=== PATIENT | female | born 1980 | race Caucasian/White ===

== ENCOUNTER 2020-06-10 15:36 | Emergency (ER) | payer MEDICAID, SELFPAY ==
[2020-06-10 15:51] VITALS: BP 178/123; PULSE 99; RESP 18; TEMP 36; O2SAT 97; BMI 34.4
--- NOTE | 2020-06-10 16:07 | XR_ITS ---
WS: [id number] XR ankle LT min 3V* [id number] REASON FOR EXAM: injury with pain FINDINGS: The ankle mortise is intact. No fracture or other focal osseous abnormality. No soft tissue abnormality. XR/XR ankle LT min 3V* [id number] IMPRESSION: No significant abnormality.
--- NOTE | 2020-06-10 16:08 | W.ED.EXTPRO ---
HPI - Extremity Problem General: Chief complaint: Extremity Problem,Nontraumatic Stated complaint: LEFT ANKLE PAIN Time Seen by Provider: 06/10/20 16:07 History of Present Illness: HPI Narrative: Patient is a 39-year-old female comes to the ED with left ankle pain. Patient says she was in her car earlier today and reposition herself and when she moved her left foot she felt a pop in her ankle. Any weightbearing now is painful. She rates her pain a 4 out of 10. Associated symptoms: Deny chest pain, fever(s) or rash Review of Systems Const: Denies: fever(s), chills or fatigue Eyes: Denies: change in vision or eye discomfort ENMT: Denies: throat pain, odynophagia, nasal discharge or nasal congestion Card: Denies: chest pain, palpitations, edema, swelling of feet/ankles, dyspnea on exertion or orthopnea Resp: Denies: dyspnea, productive cough or non-productive cough GI: Denies: abdominal pain, nausea, vomiting, diarrhea, constipation or hematochezia : Denies: flank pain, dysuria or hematuria Musc: Reports: extremity pain (left ankle); Denies: neck pain, back pain or extremity swelling Skin/Breast: Denies: rash or new lesions Neuro: Denies: headache(s), numbness in extremities or weakness in extremities Physical Exam Const: COMMON NORMALS: no acute distress, patient oriented x3 and alert GENERAL APPEARANCE: cooperative and comfortable HENMT: COMMON NORMALS: normocephalic HEAD & SCALP: normocephalic MOUTH: Normal oral and palatal mucosa present THROAT: posterior oropharynx normal and uvula midline Eye: COMMON NORMALS: Equal, round and reactive pupils present PUPIL: Yes Equal, round and reactive pupils present Neck/C-Spine: COMMON NORMALS: supple GENERAL: Yes normal visual inspection Resp: COMMON NORMALS: normal respiratory effort, No retractions, No use of accessory muscles and clear to auscultation bilaterally AUSCULTATION: clear to auscultation bilaterally Cardio: COMMON NORMALS: regular rate, regular rhythm, S1 normal heart sound present, S2 normal heart sound present, No gallops present (Cardio), No clicks present (Cardio), No murmurs present (Cardio) and Peripheral pulses 2+ throughout RATE: regular rate RHYTHM: regular rhythm HEART SOUNDS: S1 normal heart sound present and S2 normal heart sound present PERIPHERAL PULSES: Peripheral pulses 2+ throughout GI: COMMON NORMALS: Normal to inspection, nondistended, normoactive bowel sounds present, Soft to palpation, non-tender and no masses PALPATION: Yes Soft to palpation : COMMON NORMALS: Yes no CVA tenderness BLADDER/KIDNEY EXAM: Yes no CVA tenderness Back/Pelvis: COMMON NORMALS: no CVA tenderness Extremity: NARRATIVE EXTREMITY EXAM: Left ankle?no visible deformity or edema seen. Some ecchymosis over the medial aspect of the ankle. Tenderness to palpation over lateral and medial aspect of ankle. Decreased range of motion due to pain. Neurovascular intact with 2+ pedal pulse. GENERAL: Yes normal exam except as noted Neuro: COMMON NORMALS: patient oriented x3 and moves all extremities SENSORIUM/ORIENTATION: Yes alert Skin: GENERAL SKIN EXAM: dry skin Course Vital Signs: Vital signs: Vital Signs Temperature 96.8 F L 06/10/20 15:51 Pulse Rate 90 06/10/20 17:05 Respiratory Rate 17 06/10/20 17:05 Blood Pressure 149/96 06/10/20 17:05 Pulse Oximetry 98 06/10/20 17:05 MDM - Extremity (Nontraumatic) MDM Narrative: Medical decision making narrative: Patient is a 39-year-old female comes to the ED with left ankle pain. Exam shows no visible deformity or edema. Neurovascular intact and patient has some tenderness to palpation over the medial and lateral aspect of ankle. X-ray of left ankle shows no acute findings or fractures. Patient was discharged and given some crutches to help ambulate for couple days. She was told to rest ice and elevate and take [id number] ibuprofen or Tylenol for pain. Return to ED precautions given. Patient will follow up with PCP in 7 to 10 days. Patient understood agree with plan. Imaging Data^: Xray Ortho: Attestation: I personally reviewed and interpreted this imaging study as follows: My impression: no acute fracture on Left ankle xray Radiologist's impression: [address] [place] [address] XRay Report Signed Patient: CAROLYNE CODY Unit #: [id number] : 1980 Age/Sex: 39 / F ADM Date: 06/10/20 Loc: ER Room/Bed: Attending Dr: Ordering Provider/Ordering MD: Ike Dorman Date of Service: 06/10/20 Procedure(s): XR ankle LT min 3V* [id number] Accession Number(s): [id number] Report Number: [id number] WS: [id number] XR ankle LT min 3V* [id number] REASON FOR EXAM: injury with pain FINDINGS: The ankle mortise is intact. No fracture or other focal osseous abnormality. No soft tissue abnormality. XR/XR ankle LT min 3V* [id number] IMPRESSION: No significant abnormality. Dictated By: Esau Vee Jr, MD Signed By: Esau Vee Jr, MD Signed Date/Time: 06/10/201638 DD/ 35 Discharge Plan Discharge Patient Disposition: Home Clinical Impression: Ankle sprain Qualifiers: Encounter type: initial encounter Involved ligament of ankle: anterior talofibular ligament Laterality: left Qualified Code(s): S93.492A - Sprain of other ligament of left ankle, initial encounter Condition: Stable Prescriptions: No Action omeprazole 20 mg Capsule,Delayed Release(Dr/Ec) 20 mg PO DAILY@04 RF: 0 Xarelto 20 mg Tablet 20 mg PO DAILY@17 RF: 0 Discharge Orders: Discharge ED (Routine); Ordered 06/10/20 Ordered By: Ike Dorman Discharge Diet: Regular Discharge Activity: Use walker/crutches as instructed Patient Instructions: Ankle Sprain (ED), Ankle Exercises (GEN) Activity Restrictions/Additional Instructions: Follow-up with medical provider as directed. Take [id number] pain meds to help with pain. Rest, ice and elevate left foot. Use crutches for the next couple days to help ambulate and allow for healing. Return to the ER or your medical provider if condition worsens. Please read and understand discharge instructions. If any questions, please ask. 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
[2020-06-10] MEDS: HYDROcodone-acetaminophen 7.5-325 mg Tablet 1 TAB PO (17:01)
[2020-06-10 17:05] VITALS: BP 149/96; PULSE 90; RESP 17; O2SAT 98
== END 2020-06-10 17:06 | disposition home or self-care (01) ==
PROVIDERS: Emergency Provider Physician Assistant
DX: S93.492A Sprain of other ligament of left ankle, initial encounter (principal); X58.XXXA Exposure to other specified factors, initial encounter
CPT/HCPCS: 12345; 73610; 99281; 99283; E0114

== ENCOUNTER → 2020-08-13 14:03 | Outpatient (BNVA) | payer MEDICAID, SELFPAY | PROVIDERS: Visit Provider Nurse Practitioner Family | DX: D68.8 Other specified coagulation defects (principal); I10 Essential (primary) hypertension; M51.36 Other intervertebral disc degeneration, lumbar region; F32.9 Major depressive disorder, single episode, unspecified; Z86.79 Personal history of other diseases of the circulatory system; Z86.59 Personal history of other mental and behavioral disorders | CPT/HCPCS: 36415; 80053; 80061; 83735; 84439; 84443; 85025 ==

== ENCOUNTER → 2020-09-10 11:00 | Outpatient (BNVA) | payer MEDICAID, SELFPAY | PROVIDERS: Visit Provider Nurse Practitioner Family | DX: F41.9 Anxiety disorder, unspecified (principal); F32.9 Major depressive disorder, single episode, unspecified | CPT/HCPCS: 80307 ==

== ENCOUNTER → 2020-10-13 08:38 | Outpatient (BNVA) | payer MEDICAID, SELFPAY | PROVIDERS: Visit Provider Psychiatry & Neurology Psychiatry | DX: F43.12 Post-traumatic stress disorder, chronic (principal); F33.2 Major depressive disorder, recurrent severe without psychotic features; F41.1 Generalized anxiety disorder; F17.200 Nicotine dependence, unspecified, uncomplicated; F15.21 Other stimulant dependence, in remission; F11.20 Opioid dependence, uncomplicated; F12.20 Cannabis dependence, uncomplicated | CPT/HCPCS: 99204 ==

== ENCOUNTER → 2020-10-15 09:13 | Outpatient (BNVA) | payer MEDICAID, SELFPAY | PROVIDERS: Visit Provider Psychiatry & Neurology Psychiatry | DX: F41.1 Generalized anxiety disorder (principal); F11.20 Opioid dependence, uncomplicated; F12.20 Cannabis dependence, uncomplicated; F15.21 Other stimulant dependence, in remission; F17.200 Nicotine dependence, unspecified, uncomplicated; F33.2 Major depressive disorder, recurrent severe without psychotic features; F43.12 Post-traumatic stress disorder, chronic | CPT/HCPCS: 80307; 99214 ==

== ENCOUNTER → 2020-10-27 11:00 | Outpatient (BNVA) | payer MEDICAID, SELFPAY | PROVIDERS: PCP Nurse Practitioner Family; Visit Provider Psychiatry & Neurology Psychiatry | DX: F41.1 Generalized anxiety disorder (principal); F33.2 Major depressive disorder, recurrent severe without psychotic features; F43.12 Post-traumatic stress disorder, chronic; F17.200 Nicotine dependence, unspecified, uncomplicated; F11.20 Opioid dependence, uncomplicated; F12.20 Cannabis dependence, uncomplicated; F15.21 Other stimulant dependence, in remission | CPT/HCPCS: 80307; 99214 ==

== ENCOUNTER → 2020-11-11 08:54 | Outpatient (BNVA) | payer MEDICAID, SELFPAY | PROVIDERS: PCP Nurse Practitioner Family; Visit Provider Psychiatry & Neurology Psychiatry | DX: F32.9 Major depressive disorder, single episode, unspecified (principal); F41.1 Generalized anxiety disorder; F43.12 Post-traumatic stress disorder, chronic; F33.2 Major depressive disorder, recurrent severe without psychotic features; F17.200 Nicotine dependence, unspecified, uncomplicated; F11.20 Opioid dependence, uncomplicated; F12.20 Cannabis dependence, uncomplicated; F15.21 Other stimulant dependence, in remission | CPT/HCPCS: 80307; 99214 ==

== ENCOUNTER → 2020-12-02 11:55 | Outpatient (BNVA) | payer MEDICAID, SELFPAY | PROVIDERS: PCP Nurse Practitioner Family; Visit Provider Psychiatry & Neurology Psychiatry | DX: F32.9 Major depressive disorder, single episode, unspecified (principal); F60.3 Borderline personality disorder; F11.20 Opioid dependence, uncomplicated; F12.20 Cannabis dependence, uncomplicated; F15.21 Other stimulant dependence, in remission; F17.200 Nicotine dependence, unspecified, uncomplicated; F41.1 Generalized anxiety disorder; F33.2 Major depressive disorder, recurrent severe without psychotic features; F43.12 Post-traumatic stress disorder, chronic | CPT/HCPCS: 80307; 99214 ==

== ENCOUNTER → 2021-02-03 10:18 | Outpatient (BNVA) | payer MEDICAID, SELFPAY | PROVIDERS: PCP Nurse Practitioner Family; Visit Provider Psychiatry & Neurology Psychiatry | DX: F60.3 Borderline personality disorder (principal); F41.1 Generalized anxiety disorder; F33.2 Major depressive disorder, recurrent severe without psychotic features; F43.12 Post-traumatic stress disorder, chronic; F12.20 Cannabis dependence, uncomplicated; F17.200 Nicotine dependence, unspecified, uncomplicated; F11.20 Opioid dependence, uncomplicated; F15.21 Other stimulant dependence, in remission | CPT/HCPCS: 99214 ==

== ENCOUNTER → 2021-02-10 14:07 | Outpatient (BNVA) | payer MEDICAID, SELFPAY | PROVIDERS: PCP Nurse Practitioner Family; Visit Provider Psychiatry & Neurology Psychiatry | DX: F11.20 Opioid dependence, uncomplicated (principal); F15.21 Other stimulant dependence, in remission | CPT/HCPCS: 80307 ==

== ENCOUNTER → 2021-03-17 10:58 | Outpatient (BNVA) | payer MEDICAID, SELFPAY | PROVIDERS: PCP Nurse Practitioner Family; Visit Provider Nurse Practitioner Family | DX: G89.29 Other chronic pain (principal); M25.561 Pain in right knee; M25.761 Osteophyte, right knee | CPT/HCPCS: 73562 ==

== ENCOUNTER → 2021-03-24 09:43 | Outpatient (BNVA) | payer MEDICAID, SELFPAY | PROVIDERS: PCP Nurse Practitioner Family; Visit Provider Psychiatry & Neurology Psychiatry | DX: F60.3 Borderline personality disorder (principal); F41.1 Generalized anxiety disorder; F33.2 Major depressive disorder, recurrent severe without psychotic features; F43.12 Post-traumatic stress disorder, chronic | CPT/HCPCS: 80307; 99214 ==

== ENCOUNTER 2021-03-25 11:34 | Inpatient (IN) | payer MEDICAID, SELFPAY ==
[2021-03-25 11:36] VITALS: BP 174/151; PULSE 70; RESP 15; TEMP 36.6; O2SAT 99; BMI 36.7
--- NOTE | 2021-03-25 11:37 | ED_ITS ---
HPI - Psych General: Chief Complaint: Psychiatric Symptoms Stated Complaint: PSYCH EVAL Time Seen by Provider: 03/25/21 11:37 History of Present Illness: HPI Narrative: Ms. Herring is a 40-year-old lady with complex past psychiatric history, substance abuse history, and blood clotting disorder who presents emergency department due to suicidal ideation. She reports worsening of symptoms for the past 3 to 4 months without specific trigger. She endorses increased thoughts of suicide and had a suicide attempt for which she was hospitalized at [facility] approximately 2 weeks ago. At that time she overdosed on trazodone. She was discharged with medication changes however continues to feel suicidal. She endorses associated generalized malaise, sleep disturbance, appetite changes. Overall the course of symptoms has persisted. The intensity is moderate to severe. No other specific exacerbating or alleviating factors. She denies medical complaints. She has not missed any doses of her rivaroxaban. Review of Systems General: Reports: 10 or more systems reviewed and unremarkable except in HPI and below PFSH ED PFSH: Medical History History of bipolar disorder Social History Smoking and tobacco status: current every day smoker cigarettes Years cigarettes smoked: 20 Quit status (tobacco): has tried quititng Number of times tried to quit tobacco: 2 Second hand smoke exposure: Yes Alcohol intake: current Alcohol intake frequency: few times a month Physical Exam Narrative: EXAM NARRATIVE: GENERAL/CONSTITUTIONAL - well-appearing. No acute distress. Obese. Eyes - PERRL, no conjunctival injection ENMT - Atraumatic external nose and ears. Moist mucous membranes NECK - supple. trachea midline CARDIOVASCULAR - regular rate and rhythm. Peripheral pulses 2+ and equal RESPIRATORY - clear to auscultation bilaterally. No retractions or accessory muscle use. ABDOMEN/GI - Nontender, Nondistended. MSK - Extremities without obvious deformity or tenderness to palpation SKIN - Warm, Dry NEURO - alert and appropriately oriented. Moves all extremities equally. PSYCH - depressed affect. Course ED course: - Patient was seen and evaluated by me at bedside - Vital signs obtained - Initial evaluation notable for no acute distress, nontoxic appearance. - Labs notable for no significant abnormality - Based on ED evaluation at this point there is no obvious condition that would preclude the patient from inpatient management of her psychiatric concerns. - Dr. Mohr of the psychiatry service was contacted and agreed to admit the patient. - Patient was admitted without further deterioration or significant events. Vital Signs: Vital signs: Vital Signs Temperature 98.3 F 03/26/21 06:00 Pulse Rate 92 03/26/21 06:00 Respiratory Rate 20 H 03/26/21 06:00 Blood Pressure 115/76 03/26/21 06:00 Pulse Oximetry 97 03/26/21 06:00 MDM - Psych Medical Records: Attestation: I reviewed the patient's medical records. Lab Data: Attestation: I reviewed the patient's lab results. Labs: Lab Results 03/25/21 03/25/21 03/25/21 12:47 12:47 12:47 WBC RBC Hgb Hct MCV MCH MCHC RDW Plt Count MPV Neut % (Auto) Lymph % (Auto) [place] % (Auto) Eos % (Auto) Baso % (Auto) Neut # (Auto) Lymph # (Auto) [place] # (Auto) Eos # (Auto) Baso # (Auto) Nucleated RBC % (a uto) Nucleated RBCs # Sodium Potassium Chloride Carbon Dioxide Anion Gap BUN Creatinine GFR Calculation Glucose Calculated Osmolal ity Calcium Total Bilirubin AST ALT Alkaline Phosphata se Total Protein Albumin Globulin TSH HCG, Qual Negative (Negative) Urine Color Yellow (Yellow) Urine Appearance Clear (CLEAR) Urine pH 8 H (5-7) Ur Specific Gravit y 1.010 (1.005-1.030) Urine Protein Neg (Negative) Urine Glucose (UA) Norm (Normal) Urine Ketones Negative (Negative) Urine Blood Neg (Negative) Urine Nitrate Negative (Negative) Urine Bilirubin Neg (Negative) Prot Sulfosalicyli c Acd Negative (Negative) Urine Urobilinogen Norm mg/dL mg/dL (Negative) Ur Leukocyte Angy ase Negative (Negative) Salicylates Urine Opiates Scre en Negative ng/mL ng /mL (Negative) Acetaminophen Ur Barbiturates Sc reen Negative ng/mL ng /mL (Negative) Ur Phencyclidine S crn Negative ng/mL ng /mL (Negative) Ur Amphetamines Sc reen Negative ng/mL ng /mL (Negative) U Benzodiazepines Scrn Negative ng/mL ng /mL (Negative) Urine Cocaine Scre en Negative ng/mL ng /mL (Negative) U Marijuana (THC) Screen Positive ng/mL H ng/mL (Negative) 03/25/21 03/25/21 13:09 13:09 WBC 5.5 10^3/uL 10^3/ uL (4.0-10.0) RBC 4.69 10^6/uL 10^6 /uL (4.1-5.3) Hgb 13.4 g/dL g/dL (11.5-15.3) Hct 41.5 % % (37.0-47.0) MCV 88.5 fl fl (81-99) MCH 28.6 pg pg (28.0-34.0) MCHC 32.3 g/dL g/dL (30.0-36.0) RDW 12.3 % % (12.1-15.1) Plt Count 173 10^3/cmm 10^3 /cmm (130-400) MPV 11.1 fL H fL (7.4-10.4) Neut % (Auto) 51.1 % % Lymph % (Auto) 35.9 % % [place] % (Auto) 6.3 % % Eos % (Auto) 4.9 % % Baso % (Auto) 1.6 % % Neut # (Auto) 2.82 10^3/uL 10^3 /uL (1.8-7.7) Lymph # (Auto) 2.0 10^3/uL 10^3/ uL (0.8-4.8) [place] # (Auto) 0.4 10^3/uL 10^3/ uL (0.2-0.9) Eos # (Auto) 0.3 10^3/uL 10^3/ uL (0.0-0.8) Baso # (Auto) 0.1 10^3/uL 10^3/ uL (0.0-0.1) Nucleated RBC % (a uto) 0 % % Nucleated RBCs # 0.0 /100WBC /100W BC Sodium 136 mmol/L mmol/L (136-145) Potassium 4.8 mmol/L mmol/L (3.5-5.1) Chloride 102 mmol/L mmol/L (98-107) Carbon Dioxide 24 mmol/L mmol/L (22-29) Anion Gap 14.8 (5-19) BUN 12 mg/dL mg/dL (6-20) Creatinine 0.9 mg/dL mg/dL (0.5-0.9) GFR Calculation 68.7 mL/min L mL/ min (90-130) Glucose 91 mg/dL mg/dL (65-115) Calculated Osmolal ity 281 mOsm/kg L mOs m/kg (285-295) Calcium 9.1 mg/dL mg/dL (8.5-10.5) Total Bilirubin 0.2 mg/dL mg/dL (0.15-1.2) AST 11 U/L U/L (0-32) ALT 7 U/L U/L (0-33) Alkaline Phosphata se 66 IU/L IU/L (35-105) Total Protein 6.4 g/dL L g/dL (6.6-8.7) Albumin 4.0 g/dL g/dL (3.5-5.2) Globulin 2.4 g/dL g/dL (1.3-4.6) TSH 1.93 uIU/mL uIU/m L (0.27-4.20) HCG, Qual Urine Color Urine Appearance Urine pH Ur Specific Gravit y Urine Protein Urine Glucose (UA) Urine Ketones Urine Blood Urine Nitrate Urine Bilirubin Prot Sulfosalicyli c Acd Urine Urobilinogen Ur Leukocyte Angy ase Salicylates < 0.3 mg/dL L mg/ dL (3-10) Urine Opiates Scre en Acetaminophen < 5.0 ug/mL L ug/ mL (10-30) Ur Barbiturates Sc reen Ur Phencyclidine S crn Ur Amphetamines Sc reen U Benzodiazepines Scrn Urine Cocaine Scre en U Marijuana (THC) Screen EKG Data^: EKG 1: Attestation: I personally reviewed and interpreted this EKG as follows: EKG interpretation date: 03/25/21 EKG interpretation time: 12:57 Interpretation: Twelve-lead EKG shows a regular rhythm at a rate of 60. MO interval 199. QRS duration 90. QTc 411. Normal [place]. Interpretation: Sinus rhythm. Discharge Plan Discharge Patient Disposition: Admitted As Inpatient Admit Provider: Tony Mohr Coding Level of Care Code ED Toe Sewer for [facility]
[2021-03-25 12:57] LABS: HCG Qualitative Urine. Negative (Negative)
[2021-03-25 13:25] LABS: Basophils # 0.1 10^3/uL (0.0-0.1); Basophils % 1.6 %; Eosinophils # 0.3 10^3/uL (0.0-0.8); Eosinophils % 4.9 %; Hematocrit 41.5 % (37.0-47.0); Hemoglobin 13.4 g/dL (11.5-15.3); Lymphocytes % 35.9 %; Mean Corpuscular HGB Conc 32.3 g/dL (30.0-36.0); Mean Corpuscular Hemoglobin 28.6 pg (28.0-34.0); Mean Corpuscular Volume 88.5 fl (81-99); Mean Platelet Volume 11.1 fL (7.4-10.4); Monocytes # 0.4 10^3/uL (0.2-0.9); Monocytes % 6.3 %; Neutrophils # 2.82 10^3/uL (1.8-7.7); Neutrophils % 51.1 %; Nucleated Red Blood Cells % 0 %; Platelet Count 173 10^3/cmm (130-400); Red Blood Count 4.69 10^6/uL (4.1-5.3); Red Cell Distribution Width 12.3 % (12.1-15.1); White Blood Count 5.5 10^3/uL (4.0-10.0)
[2021-03-25 13:44] LABS: Alanine Aminotransferase 7 U/L (0-33); Alkaline Phosphatase 66 IU/L (35-105); Aspartate Amino Transferase 11 U/L (0-32); Blood Urea Nitrogen 12 mg/dL (6-20); Calcium 9.1 mg/dL (8.5-10.5); Carbon Dioxide 24 mmol/L (22-29); Chloride 102 mmol/L (98-107); Globulin 2.4 g/dL (1.3-4.6); Glomerular Filtration Rate 68.7 mL/min (90-130); Glucose 91 mg/dL (65-115); Osmolality Calculated 281 mOsm/kg (285-295); Sodium 136 mmol/L (136-145); Total Bilirubin 0.2 mg/dL (0.15-1.2); Total Protein 6.4 g/dL (6.6-8.7)
[2021-03-25 13:45] LABS: Acetaminophen < 5.0 ug/mL (10-30); Anion Gap 14.8 (5-19); Potassium 4.8 mmol/L (3.5-5.1); Salicylate < 0.3 mg/dL (3-10); Thyroid Stimulating Hormone 1.93 uIU/mL (0.27-4.20)
[2021-03-25 16:31] VITALS: BP 114/62; PULSE 67; RESP 18; TEMP 36.9; O2SAT 96
[2021-03-25 16:50] VITALS: BP 117/81; PULSE 85; RESP 17; TEMP 36.3; O2SAT 97
[2021-03-25] MEDS: nicotine 2 mg Gum BUCCAL ×2 (17:14→19:29)
[2021-03-25] MEDS: buprenorphine-naloxone 4-1 mg Film 4 EACH SUBLINGUAL (20:00)
[2021-03-25] MEDS: lisinopril 20 mg Tablet PO (20:02)
[2021-03-25] MEDS: pantoprazole DR 40 mg Tablet PO (20:02)
[2021-03-25] MEDS: cetirizine 10 mg Tablet PO (20:02)
[2021-03-25] MEDS: lamoTRIgine 100 mg Tablet 200 MG PO (20:03)
[2021-03-25] MEDS: rivaroxaban 10 mg Tablet 20 MG PO (20:03)
[2021-03-25] MEDS: prazosin 5 mg Capsule 10 MG PO (20:07)
[2021-03-25] MEDS: ARIPiprazole 30 mg Tablet PO (20:07)
[2021-03-25] MEDS: hyDROXYzine 25 mg Capsule 50 MG PO (20:07)
[2021-03-25 20:44] VITALS: BP 118/83; PULSE 83; RESP 15; TEMP 36.4; O2SAT 97
[2021-03-25] MEDS: acetaminophen 325 mg Tablet 650 MG PO (22:09)
[2021-03-26 06:00] VITALS: BP 115/76; PULSE 92; RESP 20; TEMP 36.8; O2SAT 97
[2021-03-26] MEDS: nicotine 2 mg Gum BUCCAL (06:14)
[2021-03-26 06:26] LABS: Add Urine Microscopic? NO; Charge for UA Resulting for Rev
[2021-03-26 06:46] LABS: Bilirubin Urine Neg (Negative); Blood Urine Neg (Negative); Glucose Urine UA Norm (Normal); Ketones Urine Negative (Negative); Leukocyte Esterase Urine Negative (Negative); Nitrate Urine Negative (Negative); Protein Urine Neg (Negative); Sulfosalicylic Acid Urine Negative (Negative); Urine Appearance Clear (CLEAR); Urine Color Yellow (Yellow); Urobilinogen Urine Norm (Negative); pH Urine 8 (5-7)
[2021-03-26] MEDS: hyDROXYzine 25 mg Capsule 50 MG PO (06:51)
[2021-03-26 06:55] LABS: Amphetamines Screen Urine Negative (Negative); Barbiturates Screen Urine Negative (Negative); Benzodiazepines Screen Urine Negative (Negative); Cocaine Screen Urine Negative (Negative); Opiate Screen Urine Negative (Negative); PCP Screen Urine Negative (Negative); THC Screen Urine Positive (Negative)
[2021-03-26] MEDS: duloxetine 60 mg Capsule PO ×2 (09:12→16:42)
[2021-03-26] MEDS: cetirizine 10 mg Tablet PO (09:12)
[2021-03-26] MEDS: rivaroxaban 10 mg Tablet 20 MG PO (09:12)
[2021-03-26] MEDS: pantoprazole DR 40 mg Tablet PO (09:12)
[2021-03-26] MEDS: lisinopril 20 mg Tablet PO (09:12)
[2021-03-26] MEDS: lamoTRIgine 100 mg Tablet 200 MG PO (09:12)
[2021-03-26] MEDS: fluticasone nasal spray 16gm Btl 1 SPRAY INTRANASAL ×2 (09:19→16:42)
[2021-03-26] MEDS: nicotine 21 mg Patch 1 PATCH TRANSDERMA (09:35)
[2021-03-26] MEDS: buprenorphine-naloxone 4-1 mg Film 4 EACH SUBLINGUAL (09:43)
[2021-03-26 14:00] VITALS: BP 140/87; PULSE 84; RESP 17; TEMP 36.7; O2SAT 96
[2021-03-26] MEDS: OLANZapine 5 mg ODT PO (14:18)
--- NOTE | 2021-03-26 14:28 | P.HP_ITS ---
Providers/Chief Complaint Admitting Physician: Tony Mohr MD Primary Care Provider: Janine De La Garza NP Chief Complaint: PSYCH EVAL HPI NPU History of Present Illness Yoandy Herring is a 40 year old female with major depression, generalized anxiety disorder, PTSD, and borderline personality disorder who was admitted through our ED due to increasing suicidal ideation and thoughts/threats of harm her mother. The ED note from last evening states from last evening: HPI Narrative: Ms. Herring is a 40-year-old lady with complex past psychiatric history, substance abuse history, and blood clotting disorder who presents emergency department due to suicidal ideation. She reports worsening of symptoms for the past 3 to 4 months without specific trigger. She endorses increased thoughts of suicide and had a suicide attempt for which she was hospitalized at [facility] approximately 2 weeks ago. At that time she overdosed on trazodone. She was discharged with medication changes however continues to feel suicidal. She endorses associated generalized malaise, sleep disturbance, appetite changes. Overall the course of symptoms has persisted. The intensity is moderate to severe. No other specific exacerbating or alleviating factors. She denies medical complaints. She has not missed any doses of her rivaroxaban. The note from her therapist from yesterday afternoon states in part: Risk Assessment: Suicidal Intent ( I want to , I'm useless anyway . ) Symptoms Reported: Pt described threatening violence against her mother this d ate, desiring to be hospitalized for suicidal intentions. I'm a real big mess! , (simultaneously laughing and sobbing) Clinician's Observation: IP described coming in per her psychiatrist's request, and that she agreed to come in and then go to the in pt unit. She laughed, cried, simultaneously. She freely admitted and described violent threats against her mom, including threatening to break out a window right before this appointment. Their fight was over mom's wanting her check to pay bills. IP didn't want to hand over her check. IP stated she lives in a trailer across the street from her mom. She and mom house 3 of her 4 kids. She is proud of her sobriety of several month duration. She enjoys her support group: [facility], episcopalian and recovery groups. Mom will never say I love you , all hard love . Mom is Alejandra O'Creston, . Msg left with scheduling, [facility] for Dr. Stone regarding her hospitalization per her request. The patient Meds NPU Home Medications Medication Instructions Recorded Confirmed Last Taken Type tiotropium 2.5 mcg-olodaterol 2.5 2 puff INHALATION DAILY #4 g 10/14/20 03/25/21 03/24/21 Rx mcg/actuation mist for inhalation albuterol sulfate 90 mcg/actuation See Rx Instructions .ROUTE 01/21/21 03/25/21 Unknown Rx aerosol inhaler .COMPLEX #8.5 g buprenorphine 8 mg-naloxone 2 mg 2 tab SUBLINGUAL DAILY #60 tab 02/10/21 03/25/21 03/24/21 Rx sublingual tablet fluticasone propionate 50 1 spray INTRANASAL BID 03/16/21 03/25/21 Unknown History mcg/actuation nasal spray,suspension duloxetine 60 mg capsule,delayed 60 mg PO BID #60 cap 03/24/21 03/25/21 03/25/21 Rx release hydroxyzine pamoate 50 mg capsule 50 mg PO QID PRN #120 cap 03/24/21 03/25/21 03/25/21 Rx lamotrigine 200 mg tablet 200 mg PO DAILY #30 tab 03/24/21 03/25/21 03/24/21 Rx aripiprazole 30 mg PO BEDTIME 03/25/21 03/25/21 03/24/21 History cetirizine 10 mg PO DAILY 03/25/21 03/25/21 03/24/21 History lisinopril 20 mg PO DAILY 03/25/21 03/25/21 03/24/21 History omeprazole 20 mg PO DAILY 03/25/21 03/25/21 03/24/21 History prazosin 10 mg PO BEDTIME 03/25/21 03/25/21 03/24/21 History rivaroxaban [Xarelto] 20 mg PO DAILY 03/25/21 03/25/21 03/25/21 History Allergies Allergy/AdvReac Type Severity Reaction Status Date / Time meloxicam [From Mobic] Allergy Severe ALGY-Swell Verified 03/24/21 09:55 Lip/Tongue/Throat Sulfa (Sulfonamide Allergy Severe ALGY-Swell Verified 03/24/21 09:55 Antibiotics) Lip/Tongue/Throat acetaminophen [From Tylenol] AdvReac Intermediate Rash Verified 03/24/21 09:55 ibuprofen AdvReac Intermediate Rash Verified 03/24/21 09:55 PFSH NPU PFSH: Medical History History of bipolar disorder Social History Smoking and tobacco status: current every day smoker cigarettes Years cigar ettes smoked: 20 Quit status (tobacco): has tried quititng Number of times tried to quit tobacco: 2 Second hand smoke exposure: Yes Alcohol intake: current Alcohol intake frequency: few times a month Vitals/I&O/Wt Last Vital Signs Temp 98.3 F 03/26/21 06:00 Pulse 92 03/26/21 06:00 Resp 20 H 03/26/21 06:00 BP 115/76 03/26/21 06:00 Pulse Ox 97 03/26/21 06:00 Weight last 48 hrs Weight 121.109 kg Data NPU : 03/25/21 13:09 03/25/21 13:09 A&P Assessment and plan (1) Major depressive disorder, recurrent severe without psychotic features: Status: Acute (2) Chronic post-traumatic stress disorder: Status: Acute (3) Generalized anxiety disorder: Status: Acute (4) Borderline personality disorder: Status: Acute (5) Opioid use disorder, severe, dependence: Status: Acute (6) Cannabis use disorder, severe, dependence: Status: Acute (7) Methamphetamine use disorder, severe, in early remission: Status: Acute (8) Nicotine dependence, unspecified, uncomplicated: Status: Acute Additional A&P Information This is a 40 year old female with major depression, generalized anxiety disorder, PTSD, and borderline personality disorder who was admitted through our ED due to increasing suicidal ideation and thoughts/threats of harm her mother. RECOMMENDATION AND PLAN: 1. Continue current medication. 2. Continue every 15 minute checks for safety. 3. Encourage individual, group and milieu therapies. 4. Encourage sober living treatment after discharge at the highest level of care to which he is willing to commit. Involuntary Hold Information 96 Hour Hold: 96 Hour Involuntary Admission: No Attestations NPU Medical Necessity Statement*: Psychiatric hospitalization is medically necessary to prevent access to lethal means, to reevaluate medication, and to coordinate a safe discharge. Patient will be in the hospital for over 2 mid nights. Likely length of stay is 3 to 5 days. Coding Level of Care Code Acute Medical Transcriptionist for g Fwd Diagnoses Major depressive disorder, recurrent severe without psychotic features F33.2 Chronic post-traumatic stress disorder F43.12 Generalized anxiety disorder F41.1 Borderline personality disorder F60.3 Opioid use disorder, severe, dependence F11.20 Cannabis use disorder, severe, dependence F12.20 Methamphetamine use disorder, severe, in early remission F15.21 Nicotine dependence, unspecified, uncomplicated F17.200
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
[2021-03-26 17:04] VITALS: BP 119/74; PULSE 109; RESP 18; TEMP 36.1; O2SAT 98
--- NOTE | 2021-03-26 18:18 | PC.NURSE ---
discharge patient discharged at 1810, patient's belongings returned, discharge papers reviewed and signed.
--- NOTE | 2021-03-28 15:12 | PC.RESP ---
sent smoking cessation and pulmonary rehab information
== END 2021-03-26 18:11 | disposition home or self-care (01) | DRG 885 ==
LOC: ER 11:45 → NP 16:10
PROVIDERS: Admitting Provider Psychiatry & Neurology Child & Adolescent Psychiatry; Emergency Provider Emergency Medicine; PCP Nurse Practitioner Family; Visit Provider Psychiatry & Neurology Child & Adolescent Psychiatry
DX: F33.2 Major depressive disorder, recurrent severe without psychotic features (principal); R45.851 Suicidal ideations; F11.288 Opioid dependence with other opioid-induced disorder; D68.9 Coagulation defect, unspecified; F41.1 Generalized anxiety disorder; F43.12 Post-traumatic stress disorder, chronic; F60.3 Borderline personality disorder; F12.280 Cannabis dependence with cannabis-induced anxiety disorder; F15.21 Other stimulant dependence, in remission; F17.210 Nicotine dependence, cigarettes, uncomplicated; Z79.01 Long term (current) use of anticoagulants; Z81.8 Family history of other mental and behavioral disorders
CPT/HCPCS: 36415; 80053; 80306; 80307; 81003; 81025; 84443; 85025; 99285; J0573

== ENCOUNTER 2021-04-06 06:00 | Outpatient (RCR) | payer MEDICAID, SELFPAY | END 2021-04-24 23:59 | disposition home or self-care (01) | LOC: GPT 06:00 | PROVIDERS: PCP Nurse Practitioner Family; Referring Provider Nurse Practitioner Family; Visit Provider Nurse Practitioner Family | DX: M54.2 Cervicalgia (principal); M54.9 Dorsalgia, unspecified; G89.29 Other chronic pain | CPT/HCPCS: 36416; 80053; 81000; 82962; 85025; 97110; 97161; 97530 ==

== ENCOUNTER → 2021-04-13 16:37 | Outpatient (BNVA) | payer MEDICAID, SELFPAY | PROVIDERS: PCP Nurse Practitioner Family; Visit Provider Nurse Practitioner Family | DX: R10.9 Unspecified abdominal pain (principal); R82.90 Unspecified abnormal findings in urine | CPT/HCPCS: 81000; 87077; 87086; 87184 ==

== ENCOUNTER 2021-04-25 06:00 | Outpatient (RCR) | payer MEDICAID, SELFPAY | END 2021-05-24 23:59 | disposition home or self-care (01) | LOC: GPT 06:00 | PROVIDERS: PCP Nurse Practitioner Family; Visit Provider Nurse Practitioner Family | DX: F60.3 Borderline personality disorder (principal); F41.1 Generalized anxiety disorder; F43.12 Post-traumatic stress disorder, chronic; F11.20 Opioid dependence, uncomplicated; G89.29 Other chronic pain; M54.2 Cervicalgia; M54.9 Dorsalgia, unspecified | CPT/HCPCS: 80307; 97110; 97530; 99214 ==

== ENCOUNTER 2021-05-12 20:00 | Outpatient (CLI) | payer MEDICAID, SELFPAY | END 2021-05-12 20:01 | disposition home or self-care (01) | LOC: SLEEP 05-13 10:07 | PROVIDERS: PCP Nurse Practitioner Family; Visit Provider Nurse Practitioner Family | DX: R06.83 Snoring (principal); G47.30 Sleep apnea, unspecified | CPT/HCPCS: 95810 ==

== ENCOUNTER → 2021-07-05 11:16 | Outpatient (BNVA) | payer MEDICAID, OTHER, SELFPAY | PROVIDERS: PCP Nurse Practitioner Family; Visit Provider Psychiatry & Neurology Psychiatry | DX: F41.1 Generalized anxiety disorder (principal); F43.12 Post-traumatic stress disorder, chronic; F60.3 Borderline personality disorder; F11.20 Opioid dependence, uncomplicated; Z79.899 Other long term (current) drug therapy | CPT/HCPCS: 80307; 99214 ==

== ENCOUNTER → 2021-07-13 08:12 | Outpatient (BNVA) | payer MEDICAID, SELFPAY | PROVIDERS: PCP Nurse Practitioner Family; Visit Provider Nurse Practitioner Family | DX: Z20.822 Contact with and (suspected) exposure to COVID-19 (principal); R11.10 Vomiting, unspecified | CPT/HCPCS: 87635 ==

== ENCOUNTER → 2021-08-11 10:30 | Outpatient (BNVA) | payer MEDICAID, SELFPAY | PROVIDERS: PCP Nurse Practitioner Family; Visit Provider Nurse Practitioner Family | DX: M54.9 Dorsalgia, unspecified (principal); R82.998 Other abnormal findings in urine | CPT/HCPCS: 81000 ==

== ENCOUNTER → 2021-10-17 11:42 | Outpatient (BNVA) | payer MEDICAID, SELFPAY | PROVIDERS: PCP Nurse Practitioner Family; Visit Provider Psychiatry & Neurology Psychiatry | DX: F41.1 Generalized anxiety disorder (principal); F43.12 Post-traumatic stress disorder, chronic; F60.3 Borderline personality disorder; F11.20 Opioid dependence, uncomplicated; Z79.899 Other long term (current) drug therapy | CPT/HCPCS: 80061; 80307; 83036; 99214 ==

== ENCOUNTER 2021-11-16 11:28 | Emergency (ER) | payer MEDICAID, SELFPAY ==
[2021-10-18 10:45] VITALS: BP 144/86; BMI 40.2
[2021-11-16 11:38] VITALS: BP 132/78; PULSE 72; RESP 24; TEMP 36.8; O2SAT 99; BMI 41.9
[2021-11-16] MEDS: haloperidol inj 5 mg/mL INJ 1 mL IVP (12:15)
[2021-11-16] MEDS: sodium chloride 0.9% 1,000 ML 999 ML IV (12:15)
--- NOTE | 2021-11-16 12:17 | ED_ITS ---
HPI - Nausea/Vomiting/Diarrhea General: Chief complaint: Nausea/Vomiting/Diarrhea Stated complaint: vomiting blood/night sweats/nausea Time Seen by Provider: 11/16/21 11:43 History of Present Illness: Patient comes in with nausea, and vomiting that started yesterday. States she received a COVID booster yesterday and since then has been very sick to her stomach and throwing up. States she also smokes marijuana, and has her medical card. States she has been throwing up what looks like blood. States last time this happened to her she had to have Haldol. Associated nausea: Yes Associated symtoms: Reports nausea; Denies anxiety, change in vision, chest pain, dysuria, headache(s) or palpitations Review of Systems Const: Denies: fever(s) or body aches Eyes: Denies: change in vision or blurry vision ENMT: Denies: throat pain or odynophagia Card: Denies: chest pain or palpitations Resp: Denies: dyspnea or productive cough GI: Reports: abdominal pain, nausea and vomiting : Denies: flank pain or dysuria Musc: Denies: neck pain or back pain Skin/Breast: Denies: rash or pruritus Neuro: Denies: headache(s) or numbness in extremities Psych: Denies: anxiety or change in appetite Endo: Denies: polyuria or excessive sweating PFSH ED PFSH: Medical History (Updated 11/16/21 @ 13:53 by Aubrey Veras MD) History of bipolar disorder Post-traumatic stress disorder, chronic Psychiatric care Family History (Updated 08/31/21 @ 09:49 by Raina Gregory RN) Other CAD (coronary artery disease) Cancer Diabetes Hyperlipidemia Hypertension Lung disease Psychiatric illness Social History Smoking and tobacco status: light tobacco smoker cigarettes Packs smoked per day: 1 Years cigarettes smoked: 24 Quit status (tobacco): has tried quititng Number of times tried to quit tobacco: 2 Second hand smoke exposure: Yes Alcohol intake: current Alcohol intake frequency: few times a month Alcohol type: beer Adopted: No Caregiver/support person: No Lives independently: Yes Household members: children Housing: Manufactured/Mobile home Marital status: Single Number of children: 4 Number of grandchildren: 1 Highest education level completed: Some College, No Degree service: No Current occupational status: disabled Pets and animals: Yes Pets & animals: dog(s) History of recent travel: Yes (grocery shopping) Out of state: Yes Leisure activites: music, reading and other Leisure activities details: woodburning, blo glass Sexually active: Yes Current gender identity: Female Rosemarie/Bahai: Moravian Special rosemarie needs: No Agree to transfusion: Yes Financial difficulty paying for basics: Somewhat Hard Female Reproductive History: Para: 4 Physical Exam Const: COMMON NORMALS: no acute distress, patient oriented x3, healthy appearing and alert HENMT: COMMON NORMALS: normocephalic and atraumatic HEAD & SCALP: normocephalic and atraumatic Eye: COMMON NORMALS: Equal, round and reactive pupils present and EOMs intact bilaterally PUPIL: Yes Equal, round and reactive pupils present Neck/C-Spine: COMMON NORMALS: full ROM and supple Resp: COMMON NORMALS: normal respiratory effort, No retractions and No use of accessory muscles Cardio: COMMON NORMALS: regular rate and regular rhythm RATE: regular rate RHYTHM: regular rhythm GI: COMMON NORMALS: Normal to inspection, nondistended, normoactive bowel sounds present and Soft to palpation PALPATION: Yes Soft to palpation OTHER: Distractible tenderness to palpation of the abdomen Back/Pelvis: COMMON NORMALS: thoracic and lumbar spine normal to inspection and no thoracic nor lumbar tenderness Extremity: COMMON NORMALS: normal to inspection and full ROM Neuro: COMMON NORMALS: patient oriented x3 SENSORIUM/ORIENTATION: Yes alert Psych: COMMON NORMALS: mental status grossly normal and cooperative Skin: COMMON NORMALS: no rashes or lesions noted and no wounds GENERAL SKIN EXAM: no rashes or lesions noted Course Vital Signs: Vital signs: Vital Signs Temperature 98.2 F 11/16/21 11:38 Pulse Rate 72 11/16/21 11:38 Respiratory Rate 24 H 11/16/21 11:38 Blood Pressure 132/78 11/16/21 11:38 Pulse Oximetry 99 11/16/21 11:38 MDM - Nausea/Vomiting/Diarrhea Medical Decision Making Patient comes in with nausea, and vomiting that started yesterday. States she received a COVID booster yesterday and since then has been very sick to her stomach and throwing up. States she also smokes marijuana, and has her medical card. States she has been throwing up what looks like blood. States last time this happened to her she had to have Haldol. On physical exam she is in moderate distress from vomiting. Will check labs, give IV fluids, treat nausea with IV Haldol, and reassess. On reassessment the patient is feeling better. I talked to her about the test results. Will discharge with precautions return for worsening or changing symptoms. Lab Data : 11/16/21 12:35 11/16/21 12:35 Laboratory Results WBC 10.8 10^3/uL (4.0-10.0) H 11/16/21 12:35 RBC 5.59 10^6/uL (4.1-5.3) H 11/16/21 12:35 Hgb 15.2 g/dL (11.5-15.3) 11/16/21 12:35 Hct 46.7 % (37.0-47.0) 11/16/21 12:35 MCV 83.5 fl (81-99) 11/16/21 12:35 MCH 27.2 pg (28.0-34.0) L 11/16/21 12:35 MCHC 32.5 g/dL (30.0-36.0) 11/16/21 12:35 RDW 13.5 % (12.1-15.1) 11/16/21 12:35 Plt Count 283 10^3/cmm (130-400) 11/16/21 12:35 MPV 10.9 fL (7.4-10.4) H 11/16/21 12:35 Neut % (Auto) 87.4 % 11/16/21 12:35 Lymph % (Auto) 8.9 % 11/16/21 12:35 Louisa % (Auto) 2.4 % 11/16/21 12:35 Eos % (Auto) 0.0 % 11/16/21 12:35 Baso % (Auto) 0.7 % 11/16/21 12:35 Neut # (Auto) 9.40 10^3/uL (1.8-7.7) H 11/16/21 12:35 Lymph # (Auto) 1.0 10^3/uL (0.8-4.8) 11/16/21 12:35 Louisa # (Auto) 0.3 10^3/uL (0.2-0.9) 11/16/21 12:35 Eos # (Auto) 0.0 10^3/uL (0.0-0.8) 11/16/21 12:35 Baso # (Auto) 0.1 10^3/uL (0.0-0.1) 11/16/21 12:35 Nucleated RBC % (auto) 0 % 11/16/21 12:35 Nucleated RBCs # 0.0 /100WBC 11/16/21 12:35 Sodium 142 mmol/L (136-145) 11/16/21 12:35 Potassium 3.5 mmol/L (3.5-5.1) 11/16/21 12:35 Chloride 103 mmol/L (98-107) 11/16/21 12:35 Carbon Dioxide 23 mmol/L (22-29) 11/16/21 12:35 Anion Gap 19.5 (5-19) H 11/16/21 12:35 BUN 11 mg/dL (6-20) 11/16/21 12:35 Creatinine 0.7 mg/dL (0.5-0.9) 11/16/21 12:35 GFR Calculation 91.3 mL/min (90-130) 11/16/21 12:35 Glucose 150 mg/dL (65-115) H 11/16/21 12:35 Calculated Osmolality 296 mOsm/kg (285-295) H 11/16/21 12:35 Calcium 9.7 mg/dL (8.5-10.5) 11/16/21 12:35 Total Bilirubin 0.3 mg/dL (0.15-1.2) 11/16/21 12:35 AST 11 U/L (0-32) 11/16/21 12:35 ALT 11 U/L (0-33) 11/16/21 12:35 Alkaline Phosphatase 76 IU/L (35-105) 11/16/21 12:35 Total Protein 7.6 g/dL (6.6-8.7) 11/16/21 12:35 Albumin 4.7 g/dL (3.5-5.2) 11/16/21 12:35 Globulin 2.9 g/dL (1.3-4.6) 11/16/21 12:35 Lipase 18 U/L (13-60) 11/16/21 12:35 Discharge Plan Discharge Patient Disposition: Home Clinical Impression: Vomiting Condition: Stable Prescriptions: New ondansetron 4 mg tablet,disintegrating 4 mg PO Q8H PRN (Reason: nausea and vomiting) 5 Days Qty: 20 0RF No Action ondansetron 8 mg tablet,disintegrating 8 mg PO Q8H PRN (Reason: nausea and vomiting) Qty: 30 0RF sucralfate [Carafate] 1 gram tablet 1 g PO BID PRN0RF nystatin 100,000 unit/mL suspension 5 ml PO QID 10 Days Qty: 200 0RF Rx Instructions: swish and swallow sucralfate 100 mg/mL suspension 10 ml PO QID 10 Days Qty: 400 0RF Rx Instructions: swish in mouth and swallow; use after food/drink bupropion HCl [Wellbutrin XL] 150 mg tablet extended release 24 hr 150 mg PO QAM Qty: 14 0RF buprenorphine-naloxone 8-2 mg tablet, sublingual 2 tab sublingual DAILY Qty: 60 2RF aripiprazole 30 mg tablet 30 mg PO BEDTIME Qty: 30 2RF duloxetine 60 mg capsule,delayed release(DR/EC) 60 mg PO BID Qty: 60 2RF lamotrigine 200 mg tablet 200 mg PO DAILY Qty: 30 2RF prazosin 5 mg capsule 10 mg PO BEDTIME Qty: 60 2RF risperidone [Risperdal] 0.5 mg tablet 0.5 mg PO BID Qty: 60 2RF benzonatate 200 mg capsule 200 mg PO TID PRN (Reason: cough) Qty: 20 0RF Mucinex 1,200 mg tablet extended release 12hr 1,200 mg PO BID Qty: 30 0RF albuterol sulfate 2.5 mg /3 mL (0.083 %) solution for nebulization 2.5 mg inhalation Q4H PRN (Reason: shortness of breath or wheezing) Qty: 180 0RF fexofenadine [Shelly Allergy] 180 mg tablet 180 mg PO DAILY Qty: 90 1RF fluticasone propionate 50 mcg/actuation spray,suspension See Rx Instructions .ROUTE .COMPLEX Qty: 16 5RF Dose Instruction: USE 1 SPRAY IN EACH NOSTRIL TWICE A DAY Rx Instructions: USE 1 SPRAY IN EACH NOSTRIL TWICE A DAY Stiolto Respimat 2.5-2.5 mcg/actuation mist See Rx Instructions .ROUTE .COMPLEX Qty: 4 5RF Dose Instruction: INHALE TWO PUFFS BY MOUTH DAILY Rx Instructions: INHALE TWO PUFFS BY MOUTH DAILY lisinopril 20 mg tablet See Rx Instructions .ROUTE .COMPLEX Qty: 30 3RF Dose Instruction: TAKE ONE TABLET BY MOUTH IN THE EVENING Rx Instructions: TAKE ONE TABLET BY MOUTH IN THE EVENING Nicotrol 10 mg cartridge See Rx Instructions inhalation BID PRN (Reason: nicotine cravings) Qty: 168 0RF Rx Instructions: use 6-10 cartridges a day using frequent continuous puffing x 20 min for each cartridge. stop smoking once you start using cartridges. albuterol sulfate [ProAir HFA] 90 mcg/actuation HFA aerosol inhaler See Rx Instructions .ROUTE .COMPLEX Qty: 8.5 3RF Dose Instruction: INHALE TWO (2) PUFFS BY MOUTH EVERY 4 HOURS NEEDED SHORTNESS OF BREATH OR WHEEZING Rx Instructions: INHALE TWO (2) PUFFS BY MOUTH EVERY 4 HOURS NEEDED SHORTNESS OF BREATH OR WHEEZING Xarelto 20 mg tablet See Rx Instructions .ROUTE .COMPLEX Qty: 30 2RF Dose Instruction: TAKE ONE TABLET BY MOUTH ONCE DAILY AT FIVE (5) IN THE EVENING Rx Instructions: TAKE ONE TABLET BY MOUTH ONCE DAILY AT FIVE (5) IN THE EVENING omeprazole 20 mg capsule,delayed release(DR/EC) See Rx Instructions .ROUTE .COMPLEX Qty: 30 5RF Dose Instruction: TAKE ONE CAPSULE BY MOUTH ONCE DAILY AT 4 IN THE EVENING Rx Instructions: TAKE ONE CAPSULE BY MOUTH ONCE DAILY AT 4 IN THE EVENING Discharge Orders: Discharge ED (Routine); Ordered 11/16/21 Ordered By: Aubrey Veras Referrals: Janine De La Garza NP [Primary Care Provider] - Coding Level of Care Code ED [facility] Technician for Chg Fwd Exam Comprehensive
[2021-11-16 12:49] LABS: Basophils # 0.1 10^3/uL (0.0-0.1); Basophils % 0.7 %; Hematocrit 46.7 % (37.0-47.0); Hemoglobin 15.2 g/dL (11.5-15.3); Lymphocytes % 8.9 %; Mean Corpuscular HGB Conc 32.5 g/dL (30.0-36.0); Mean Corpuscular Hemoglobin 27.2 pg (28.0-34.0); Mean Corpuscular Volume 83.5 fl (81-99); Mean Platelet Volume 10.9 fL (7.4-10.4); Monocytes # 0.3 10^3/uL (0.2-0.9); Monocytes % 2.4 %; Neutrophils % 87.4 %; Nucleated Red Blood Cells % 0 %; Platelet Count 283 10^3/cmm (130-400); Red Blood Count 5.59 10^6/uL (4.1-5.3); Red Cell Distribution Width 13.5 % (12.1-15.1); White Blood Count 10.8 10^3/uL (4.0-10.0)
[2021-11-16 13:20] LABS: Alanine Aminotransferase 11 U/L (0-33); Albumin Level 4.7 g/dL (3.5-5.2); Alkaline Phosphatase 76 IU/L (35-105); Anion Gap 19.5 (5-19); Aspartate Amino Transferase 11 U/L (0-32); Blood Urea Nitrogen 11 mg/dL (6-20); Calcium 9.7 mg/dL (8.5-10.5); Carbon Dioxide 23 mmol/L (22-29); Chloride 103 mmol/L (98-107); Globulin 2.9 g/dL (1.3-4.6); Glomerular Filtration Rate 91.3 mL/min (90-130); Glucose 150 mg/dL (65-115); Lipase 18 U/L (13-60); Osmolality Calculated 296 mOsm/kg (285-295); Potassium 3.5 mmol/L (3.5-5.1); Sodium 142 mmol/L (136-145); Total Bilirubin 0.3 mg/dL (0.15-1.2); Total Protein 7.6 g/dL (6.6-8.7)
== END 2021-11-16 14:13 | disposition home or self-care (01) ==
PROVIDERS: Emergency Provider Emergency Medicine; PCP Nurse Practitioner Family
DX: R11.10 Vomiting, unspecified (principal)
CPT/HCPCS: 80053; 83690; 85025; 96361; 96374; 99284; J1630; J7030

== ENCOUNTER → 2021-12-14 10:53 | Outpatient (BNVA) | payer MEDICAID, SELFPAY ==
[2021-10-18 10:45] VITALS: BP 144/86; BMI 40.2
== END ==
PROVIDERS: PCP Nurse Practitioner Family; Visit Provider Psychiatry & Neurology Psychiatry
DX: F60.3 Borderline personality disorder (principal); F41.1 Generalized anxiety disorder; F43.12 Post-traumatic stress disorder, chronic; F11.20 Opioid dependence, uncomplicated; Z79.899 Other long term (current) drug therapy
CPT/HCPCS: 80307; 99214

== ENCOUNTER 2022-02-17 12:26 | Inpatient (IN) | payer MEDICAID, SELFPAY ==
[2021-10-18 10:45] VITALS: BP 144/86; BMI 40.2
[2022-02-17 12:30] VITALS: BP 182/138; PULSE 76; RESP 18; O2SAT 96; BMI 36.5
[2022-02-17 12:40] VITALS: TEMP 36.6
--- NOTE | 2022-02-17 12:40 | ED.C_ITS ---
HPI - Psych General: Chief Complaint: Psychiatric Symptoms Stated Complaint: SI W/PLAN Time Seen by Provider: 02/17/22 12:28 Source: patient Mode of arrival: EMS Limitations: no limitations History of Present Illness: This patient was referred to the emergency department from [facility] where she saw her psychiatrist this morning. She relates over the past 3 weeks she is feeling exceedingly sad and that she did not want to be here anymore. She is uncertain of what may have precipitated this she cannot recall any specific event or other life change. She states that last night she was attempting to cut her wrists but was found by her daughter who notified the patient's boyfriend who was there at the time and he managed to prevent her from doing any harm to herself. She does admit to using some alcohol in an attempt to numb herself to those thoughts. Her last drink was on Sunday. She does not normally drink much in the way of alcohol. She states she has been faithful to her medications and is been taking them as prescribed. She states she is only been sleeping 1 to 2 hours at night for the last number of days. She states she has not been eating or drinking much. She has felt similarly in the past and required hospitalization. She is requesting help at this time. MD complaint: suicidal ideation and feels depressed Relieving factors: none Exacerbating factors: none Associated psychiatric symptoms: suicidal ideation and auditory hallucinations Associated symptoms: Reports visual hallucinations, depression and suicidal ideation If self harm: admits thoughts of self harm Review of Systems Const: Denies: fever(s) or chills Eyes: Denies: change in vision ENMT: Denies: odynophagia, dental pain or nasal congestion Card: Denies: chest pain, palpitations, irregular heart rhythm or edema Resp: Denies: dyspnea, productive cough or non-productive cough GI: Denies: abdominal pain, nausea, vomiting or hematemesis : Denies: flank pain, difficulty voiding or dysuria Musc: Reports: back pain; Denies: neck pain, extremity pain or extremity swelling Skin/Breast: Denies: rash Neuro: Denies: headache(s), numbness in extremities or weakness in extremities Psych: Reports: depression, sleeping less, hopelessness, loss of interest, change in appetite, visual hallucinations and suicidal ideation; Denies: anxiety Endo: Denies: polyuria or polydipsia Ralf/Lymph: Denies: easy bruising or easy bleeding PFSH ED PFSH: Medical History History of bipolar disorder Post-traumatic stress disorder, chronic Psychiatric care Family History Other CAD (coronary artery disease) Cancer Diabetes Hyperlipidemia Hypertension Lung disease Psychiatric illness Social History Smoking and tobacco status: current every day smoker cigarettes Packs smoked per day: 2 Quit status (tobacco): has tried quititng Number of times tried to quit tobacco: 2 Second hand smoke exposure: Yes Smoking risk assessment/counseling performed?: No Alcohol intake: current Alcohol intake frequency: holidays/special occasions only Alcohol type: beer and hard liquor Desire information about alcohol rehabilitation?: No Counseling given: No Desire information about substance/drug rehabilitation?: No Counseling given: No Household members: children Housing: Manufactured/Mobile home Marital status: Single Number of children: 4 Number of grandchildren: 1 Highest education level completed: Some College, No Degree service: No Current occupational status: disabled Pets and animals: Yes Pets & animals: dog(s) History of recent travel: Yes (grocery shopping) Out of state: Yes Leisure activites: music, reading and other Leisure activities details: woodburning, blo glass Sexually active: Yes Current gender identity: Female Rosemarie/Denominational: Christian Special rosemarie needs: No Agree to transfusion: Yes Financial difficulty paying for basics: Somewhat Hard Female Reproductive History: Para: 4 Physical Exam Narrative: EXAM NARRATIVE: The patient is alert and makes good eye contact. She is tearful during her interview. Const: COMMON NORMALS: patient oriented x3 and alert GENERAL APPEARANCE: cooperative NUTRITIONAL APPEARANCE: overweight HENMT: COMMON NORMALS: normocephalic, atraumatic and moist oral mucous membranes HEAD & SCALP: normocephalic and atraumatic FACE & SINUS: normal facial exam Eye: COMMON NORMALS: Equal, round and reactive pupils present, EOMs intact bilaterally and conjunctivae normal CONJUNCTIVA: Yes conjunctivae normal PUPIL: Yes Equal, round and reactive pupils present Neck/C-Spine: COMMON NORMALS: full ROM Chest: COMMONS NORMALS: normal inspection of the chest Resp: COMMON NORMALS: normal respiratory effort, No retractions and No use of accessory muscles EFFORT & INSPECTION: Yes able to speak in complete sentences Cardio: COMMON NORMALS: regular rate, regular rhythm and Peripheral pulses 2+ throughout RATE: regular rate RHYTHM: regular rhythm PERIPHERAL PULSES: Peripheral pulses 2+ throughout GI: COMMON NORMALS: Normal to inspection, nondistended, normoactive bowel sounds present, Soft to palpation and non-tender PALPATION: Yes Soft to palpation Back/Pelvis: COMMON NORMALS: thoracic and lumbar spine normal to inspection, no thoracic nor lumbar tenderness and thoraco-lumbar ROM normal Extremity: COMMON NORMALS: normal to inspection, full ROM, no calf tenderness and no pedal edema Neuro: COMMON NORMALS: patient oriented x3, moves all extremities, no focal motor deficits, no sensory deficits noted and gait normal SENSORIUM/ORIENTATION: Yes alert COORDINATION/BALANCE: [id number] test normal SPEECH: speech normal COORDINATION: [id number] test normal Psych: ATTITUDE: Yes Withdrawn affect present ACTIVITY/MOTOR BEHAVIOR: Yes appropriate eye contact SPEECH: Yes rapid and Yes soft MOOD & AFFECT: Yes depressed mood and Yes tearful THOUGHT PROCESS: Impoverished thought process present THOUGHT CONTENT: Yes Suicidality present and Yes Hallucination(s) present ATTENTION/CONCENTRATION: Yes attention grossly intact INSIGHT: Limited insight present (Psych) Skin: COMMON NORMALS: no rashes or lesions noted, no wounds and turgor normal GENERAL SKIN EXAM: no rashes or lesions noted and turgor normal Course Consultations: Consultation #1: Discussed with Dr. Patterson who agrees to admit the patient for further evaluation Time: 14:24 Vital Signs: Vital signs: Vital Signs Temperature 97.8 F 02/17/22 12:40 Pulse Rate 76 02/17/22 12:30 Respiratory Rate 18 02/17/22 12:30 Blood Pressure 182/138 02/17/22 12:30 Pulse Oximetry 96 02/17/22 12:30 Oxygen Delivery Me thod 02/17/22 12:30 MDM - Psych Medical Decision Making Patient was referred to the emergency department for medical clearance from [facility]. Patient has a longstanding history of bipolar disorder with progressing and worsening depression over the past 3 weeks with loss of hope, suicidal ideations which led to a suicidal gesture last evening without harm. This is despite all her usual medications being taken as prescribed according to the patient. She is medically cleared at this time for admission to mental health for further evaluation. Medical Records I reviewed the patient's medical records. Lab Data I reviewed the patient's lab results. : 02/17/22 12:49 02/17/22 12:49 Laboratory Results WBC 10.3 10^3/uL (4.0-10.0) H 02/17/22 12:49 RBC 5.13 10^6/uL (4.1-5.3) 02/17/22 12:49 Hgb 13.8 g/dL (11.5-15.3) 02/17/22 12:49 Hct 43.9 % (37.0-47.0) 02/17/22 12:49 MCV 85.6 fl (81-99) 02/17/22 12:49 MCH 26.9 pg (28.0-34.0) L 02/17/22 12:49 MCHC 31.4 g/dL (30.0-36.0) 02/17/22 12:49 RDW 13.5 % (12.1-15.1) 02/17/22 12:49 Plt Count 239 10^3/cmm (130-400) 02/17/22 12:49 MPV 11.3 fL (7.4-10.4) H 02/17/22 12:49 Neut % (Auto) 63.4 % 02/17/22 12:49 Lymph % (Auto) 23.9 % 02/17/22 12:49 [place] % (Auto) 7.7 % 02/17/22 12:49 Eos % (Auto) 3.3 % 02/17/22 12:49 Baso % (Auto) 1.5 % 02/17/22 12:49 Neut # (Auto) 6.52 10^3/uL (1.8-7.7) 02/17/22 12:49 Lymph # (Auto) 2.5 10^3/uL (0.8-4.8) 02/17/22 12:49 [place] # (Auto) 0.8 10^3/uL (0.2-0.9) 02/17/22 12:49 Eos # (Auto) 0.3 10^3/uL (0.0-0.8) 02/17/22 12:49 Baso # (Auto) 0.2 10^3/uL (0.0-0.1) H 02/17/22 12:49 Nucleated RBC % (auto) 0 % 02/17/22 12:49 Nucleated RBCs # 0.0 /100WBC 02/17/22 12:49 Sodium 136 mmol/L (136-145) 02/17/22 12:49 Potassium 4.0 mmol/L (3.5-5.1) 02/17/22 12:49 Chloride 98 mmol/L (98-107) 02/17/22 12:49 Carbon Dioxide 28 mmol/L (22-29) 02/17/22 12:49 Anion Gap 14.0 (5-19) 02/17/22 12:49 BUN 10 mg/dL (6-20) 02/17/22 12:49 Creatinine 0.7 mg/dL (0.5-0.9) 02/17/22 12:49 GFR Calculation 91.3 mL/min (90-130) 02/17/22 12:49 Glucose 95 mg/dL (65-115) 02/17/22 12:49 Calculated Osmolality 281 mOsm/kg (285-295) L 02/17/22 12:49 Calcium 9.4 mg/dL (8.5-10.5) 02/17/22 12:49 Total Bilirubin 0.3 mg/dL (0.15-1.2) 02/17/22 12:49 AST 10 U/L (0-32) 02/17/22 12:49 ALT 9 U/L (0-33) 02/17/22 12:49 Alkaline Phosphatase 76 U/L (35-105) 02/17/22 12:49 Total Protein 7.2 g/dL (6.6-8.7) 02/17/22 12:49 Albumin 4.4 g/dL (3.5-5.2) 02/17/22 12:49 Globulin 2.8 g/dL (1.3-4.6) 02/17/22 12:49 Salicylates < 0.3 mg/dL (3-10) L 02/17/22 12:49 Acetaminophen < 5.0 ug/mL (10-30) L 02/17/22 12:49 Discharge Plan Discharge Patient Disposition: Admitted As Inpatient Clinical Impression: Depression, Suicidal ideation, Bipolar disorder Condition: Stable Coding Level of Care Code [employer] Division Chair for Chg Fwd Exam Comprehensive
[2022-02-17 12:59] LABS: Basophils # 0.2 10^3/uL (0.0-0.1); Basophils % 1.5 %; Eosinophils # 0.3 10^3/uL (0.0-0.8); Eosinophils % 3.3 %; Hematocrit 43.9 % (37.0-47.0); Hemoglobin 13.8 g/dL (11.5-15.3); Lymphocytes # 2.5 10^3/uL (0.8-4.8); Lymphocytes % 23.9 %; Mean Corpuscular HGB Conc 31.4 g/dL (30.0-36.0); Mean Corpuscular Hemoglobin 26.9 pg (28.0-34.0); Mean Corpuscular Volume 85.6 fl (81-99); Mean Platelet Volume 11.3 fL (7.4-10.4); Monocytes # 0.8 10^3/uL (0.2-0.9); Monocytes % 7.7 %; Neutrophils # 6.52 10^3/uL (1.8-7.7); Neutrophils % 63.4 %; Nucleated Red Blood Cells % 0 %; Platelet Count 239 10^3/cmm (130-400); Red Blood Count 5.13 10^6/uL (4.1-5.3); Red Cell Distribution Width 13.5 % (12.1-15.1); White Blood Count 10.3 10^3/uL (4.0-10.0)
--- NOTE | 2022-02-17 13:04 | PC.NURSE ---
PT LEFT IN LEGGINGS D/T NOT HAVING APPROPRIATE SIZE PAPER SCRUBS.
[2022-02-17 13:22] LABS: Alanine Aminotransferase 9 U/L (0-33); Albumin Level 4.4 g/dL (3.5-5.2); Alkaline Phosphatase 76 U/L (35-105); Aspartate Amino Transferase 10 U/L (0-32); Blood Urea Nitrogen 10 mg/dL (6-20); Calcium 9.4 mg/dL (8.5-10.5); Carbon Dioxide 28 mmol/L (22-29); Chloride 98 mmol/L (98-107); Globulin 2.8 g/dL (1.3-4.6); Glomerular Filtration Rate 91.3 mL/min (90-130); Glucose 95 mg/dL (65-115); Osmolality Calculated 281 mOsm/kg (285-295); Sodium 136 mmol/L (136-145); Total Bilirubin 0.3 mg/dL (0.15-1.2); Total Protein 7.2 g/dL (6.6-8.7)
[2022-02-17 13:24] LABS: Acetaminophen < 5.0 ug/mL (10-30); Salicylate < 0.3 mg/dL (3-10)
[2022-02-17 14:27] VITALS: BP 150/98; PULSE 69; RESP 17; TEMP 36.3; O2SAT 95
[2022-02-17 15:24] LABS: HCG Qualitative Urine. Negative (Negative)
[2022-02-17 15:46] VITALS: BP 123/78
[2022-02-17 15:49] LABS: Alcohol Level < 10 mg/dL (0-10)
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
[2022-02-17 18:04] LABS: Amphetamines Screen Urine Negative (Negative); Barbiturates Screen Urine Negative (Negative); Benzodiazepines Screen Urine Negative (Negative); Cocaine Screen Urine Negative (Negative); Opiate Screen Urine Negative (Negative); PCP Screen Urine Negative (Negative); THC Screen Urine Positive (Negative)
[2022-02-17 20:54] VITALS: BP 138/90; PULSE 64; RESP 18; O2SAT 94
[2022-02-17] MEDS: duloxetine 60 mg Capsule PO (21:24)
[2022-02-17] MEDS: ARIPiprazole 30 mg Tablet PO (21:24)
[2022-02-17] MEDS: prazosin 5 mg Capsule PO (21:24)
[2022-02-17] MEDS: trazodone 50 mg Tablet PO (21:24)
[2022-02-17] MEDS: risperiDONE 1 mg Tablet PO (21:25)
[2022-02-17 21:55] VITALS: PULSE 63; RESP 18; O2SAT 95
[2022-02-18 06:00] VITALS: RESP 18
[2022-02-18] MEDS: albuterol 8 gm MDI 1 PUFF INHALATION ×4 (09:14→21:10)
[2022-02-18] MEDS: lisinopril 20 mg Tablet PO (10:09)
[2022-02-18] MEDS: lamoTRIgine 100 mg Tablet 200 MG PO (10:09)
[2022-02-18] MEDS: duloxetine 60 mg Capsule PO ×2 (10:09→22:15)
[2022-02-18] MEDS: buPROPion XL (24 HR) 150 mg Tablet PO (10:09)
[2022-02-18] MEDS: pantoprazole DR 40 mg Tablet PO (10:09)
[2022-02-18] MEDS: risperiDONE 1 mg Tablet PO ×2 (10:09→22:15)
[2022-02-18] MEDS: rivaroxaban 10 mg Tablet 20 MG PO (10:10)
[2022-02-18] MEDS: buprenorphine-naloxone 4-1 mg Film 2 EACH SUBLINGUAL (10:10)
[2022-02-18] MEDS: fexofenadine 60 mg Tablet 180 MG PO (10:10)
--- NOTE | 2022-02-18 10:21 | PC.NURSE ---
IN BED RESTING. REPORTS INCREASED ANXIETY. MED NURSE NOTIFIED TO GIVE PRN. CONTINUES TO HAVE THOUGHTS OF BEING BETTER OFF . PT STATES SHE FEELS WORTHLESS AND HOPELESS. PT WAS CONTRACTED FOR SAFETY. CONTINUES TO REPORT SEVERE DEPRESSION. ALL QUESTIONS ANSWERED AND SUPPORT VOICED.
[2022-02-18 11:53] VITALS: PULSE 93; RESP 16; O2SAT 98
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
[2022-02-18 14:00] VITALS: BP 90/50; PULSE 59; RESP 18; TEMP 36.6; O2SAT 95
[2022-02-18 15:53] VITALS: PULSE 86; RESP 16; O2SAT 99
[2022-02-18 20:10] VITALS: BP 107/71; PULSE 80; RESP 18; TEMP 36.9; O2SAT 95
[2022-02-18 21:10] VITALS: PULSE 64; RESP 16; O2SAT 96
[2022-02-18] MEDS: prazosin 5 mg Capsule PO (22:15)
[2022-02-18] MEDS: ARIPiprazole 30 mg Tablet PO (22:15)
[2022-02-18] MEDS: trazodone 50 mg Tablet PO (22:15)
[2022-02-19] VITALS (7 sets, daily range): BP systolic 104–144; BP diastolic 64–85; PULSE 61–78; RESP 14–18; TEMP 36.7–37; O2SAT 94–98
[2022-02-19] MEDS: albuterol 8 gm MDI 1 PUFF INHALATION ×4 (03:50→21:33)
--- NOTE | 2022-02-19 06:59 | W.PM.NPUPNS ---
Subjective NPU Subjective: Patient presents today reporting that she is doing okay. She reports that she is tolerating the increase in Wellbutrin XL to 300 mg p.o. every morning. She denied any current concerns but we did review the fact that she would have Dr. Mulligan in the morning. We agreed that they would continue to review medications and consider the polypharmacy and whether more changes were necessary. Mental Status Exam MSE Comments: This is an obese white female in hospital scrubs with limited grooming and limited eye contact. No abnormal movements except for psychomotor retardation. Mostly cooperative with exam in mild distress. Speech was slightly decreased rate and decreased volume. Mood described as still tired but may be less depressed, affect is congruent. Thought process, organized. Thought content: patient denies suicidal or homicidal ideation, no delusions reported or noted and denies any auditory or visual hallucinations. Attention and concentration are intact and memory appeared reliable but none were formally tested. She is alert and oriented three times. Insight and judgment are limited. Impulse control is impaired. Vitals/I&O/Wt Last Vital Signs Temp 98.4 F 02/18/22 20:10 Pulse 67 02/19/22 03:49 Resp 16 02/19/22 03:49 BP 107/71 02/18/22 20:10 Pulse Ox 98 02/19/22 03:49 O2 Del Method 02/19/22 03:49 Weight last 48 hrs Weight 118.841 kg Data NPU : 02/17/22 12:49 02/17/22 12:49 A&P Assessment and plan (1) Major depressive disorder, recurrent severe without psychotic features: Status: Acute (2) Suicidal ideation: Status: Acute (3) COPD exacerbation: Status: Acute (4) BMI 40.0-44.9, adult: Status: Acute (5) PTSD (post-traumatic stress disorder): Status: Acute Plan This is a year old white female with a history of trauma and genetic loading for mental health and addiction issues who presents with ongoing mental health issues reporting increased depression with passive wish and suicidal ideation for the last 3 weeks. 1. Continue current medications and plan to increase Wellbutrin XL to 300 mg p.o. every morning. 2. Encourage individual, group and milieu therapy 3. Continue q-15 minute check for safety 4. Recommend sober living treatment at the highest level of care to which the patient is willing to commit. Involuntary Hold Information 96 Hour Hold: 96 Hour Involuntary Admission: No Attestations NPU Medical Necessity Statement*: Inpatient hospitalization is medically necessary and the clinically appropriate intervention at this time. We will monitor medications and make changes as indicated. Likely length of stay is 2-4 days. Coding Level of Care Code Acute [employer] for g Fwd Diagnoses Major depressive disorder, recurrent severe without psychotic features F33.2 Suicidal ideation R45.851 COPD exacerbation J44.1 BMI 40.0-44.9, adult Z68.41 PTSD (post-traumatic stress disorder) F43.10
[2022-02-19] MEDS: fexofenadine 60 mg Tablet 180 MG PO (10:39)
[2022-02-19] MEDS: lamoTRIgine 100 mg Tablet 200 MG PO (10:40)
[2022-02-19] MEDS: duloxetine 60 mg Capsule PO ×2 (10:40→20:29)
[2022-02-19] MEDS: lisinopril 20 mg Tablet PO (10:40)
[2022-02-19] MEDS: pantoprazole DR 40 mg Tablet PO (10:40)
[2022-02-19] MEDS: risperiDONE 1 mg Tablet PO ×2 (10:41→20:29)
[2022-02-19] MEDS: buprenorphine-naloxone 4-1 mg Film 2 EACH SUBLINGUAL (10:41)
[2022-02-19] MEDS: buPROPion XL (24 HR) 150 mg Tablet 300 MG PO (10:42)
[2022-02-19] MEDS: rivaroxaban 10 mg Tablet 20 MG PO (17:24)
[2022-02-19] MEDS: prazosin 5 mg Capsule PO (20:29)
[2022-02-19] MEDS: ARIPiprazole 30 mg Tablet PO (20:29)
[2022-02-20] MEDS: albuterol 8 gm MDI 1 PUFF INHALATION (03:30)
[2022-02-20 03:52] VITALS: PULSE 62; RESP 16; O2SAT 98
[2022-02-20] MEDS: nicotine 2 mg Gum BUCCAL ×2 (05:47→15:34)
[2022-02-20 06:00] VITALS: PULSE 91; RESP 20; TEMP 36.7; O2SAT 93
[2022-02-20] MEDS: magnesium hydroxide 30 mL UDC PO ×2 (06:50→20:07)
[2022-02-20 07:35] VITALS: PULSE 64; RESP 18; O2SAT 98
[2022-02-20] MEDS: pantoprazole DR 40 mg Tablet PO (08:09)
[2022-02-20] MEDS: buPROPion XL (24 HR) 150 mg Tablet 300 MG PO (08:09)
[2022-02-20] MEDS: buprenorphine-naloxone 4-1 mg Film 2 EACH SUBLINGUAL (08:09)
[2022-02-20] MEDS: risperiDONE 1 mg Tablet PO ×2 (08:09→20:09)
[2022-02-20] MEDS: fexofenadine 60 mg Tablet 180 MG PO (08:09)
[2022-02-20] MEDS: duloxetine 60 mg Capsule PO ×2 (08:10→20:09)
[2022-02-20] MEDS: lamoTRIgine 100 mg Tablet 200 MG PO (08:10)
[2022-02-20] MEDS: lisinopril 20 mg Tablet PO (08:10)
--- NOTE | 2022-02-20 09:56 | PC.NURSE ---
Nurse Note Patient is resting in bed. When asked how she was feeling this morning she stated, I feel great! Patient appeared to be much more happy and energetic this morning. She stated her depression and anxiety was much better and would only rate them at a 2 on a 1-10 scale. She denies any pain. She denies suicidal or homicidal ideation. Denies any auditory or visual hallucinations.
[2022-02-20 13:00] VITALS: PULSE 69; RESP 18; O2SAT 94
[2022-02-20 14:00] VITALS: BP 103/59; PULSE 71; RESP 18; TEMP 36.6; O2SAT 93
[2022-02-20] MEDS: rivaroxaban 10 mg Tablet 20 MG PO (16:55)
--- NOTE | 2022-02-20 17:54 | W.PM.NPUPNS ---
Subjective NPU Subjective: Patient is a 41-year-old female admitted with depressed mood and PTSD with a history of opiate addiction. She reported that she had been feeling better on the Wellbutrin XL 300 daily. She continues to endorse suicidal thoughts. She had reported an extended history of depressed mood. She had reported having chronic problems with maintaining control of her anxiety. Patient had reported a past history of periods of intense highs with decrease need for sleep and racing thoughts. Mental Status Exam MSE Comments: This is an obese white female in hospital scrubs with limited grooming and limited eye contact. No abnormal movements except for psychomotor retardation. Mostly cooperative with exam in mild distress. Speech was slightly decreased rate and decreased volume. Mood described as better though she reported depressed mood. ,Her affect is mood congruent and restricted. Thought process was linear and organized. Thought content: patient denies suicidal or homicidal ideation, no delusions reported or noted and denies any auditory or visual hallucinations. Attention and concentration are intact and memory appeared reliable but none were formally tested. She is alert and oriented three times. Insight and judgment are limited. Impulse control is impaired. Vitals/I&O/Wt Last Vital Signs Temp 98 F 02/20/22 14:00 Pulse 71 02/20/22 14:00 Resp 18 02/20/22 14:00 BP 103/59 02/20/22 14:00 Pulse Ox 93 02/20/22 14:00 O2 Del Method 02/20/22 14:00 Weight last 48 hrs Weight 121.563 kg Data NPU : 02/17/22 12:49 02/17/22 12:49 A&P Assessment and plan (1) Major depressive disorder, recurrent severe without psychotic features: Status: Acute (2) Suicidal ideation: Status: Acute (3) COPD exacerbation: Status: Acute (4) BMI 40.0-44.9, adult: Status: Acute (5) PTSD (post-traumatic stress disorder): Status: Acute Plan This is a year old white female with a history of trauma and genetic loading for mental health and addiction issues who presents with ongoing mental health issues reporting increased depression with passive wish and suicidal ideation for the last 3 weeks. 1. Continue current medications as prescribed with plan to decrease abilify to 20mg due to concern of polypharmacy issues (risperidone, abilify, suboxone, cymbalta, wellbutrin) 2. Encourage individual, group and milieu therapy 3. Continue q-15 minute check for safety 4. Recommend sober living treatment at the highest level of care to which the patient is willing to commit. Involuntary Hold Information 96 Hour Hold: 96 Hour Involuntary Admission: No Attestations NPU Medical Necessity Statement*: Inpatient hospitalization is medically necessary and the clinically appropriate intervention at this time. We will monitor medications and make changes as indicated. Likely length of stay is 2-4 days. Coding Level of Care Code Established Pt Acute Applied Psychology Professor for Chg Fwd Patient Type Established History Problem Focused Exam Problem Focused Medical Decision Making Straight Forward Diagnoses Major depressive disorder, recurrent severe without psychotic features F33.2 Suicidal ideation R45.851 COPD exacerbation J44.1 BMI 40.0-44.9, adult Z68.41 PTSD (post-traumatic stress disorder) F43.10
[2022-02-20 19:51] VITALS: BP 120/75; PULSE 76; RESP 18; TEMP 36.7; O2SAT 93
[2022-02-20] MEDS: ARIPiprazole 10 mg Tablet 20 MG PO (20:08)
[2022-02-20] MEDS: prazosin 5 mg Capsule PO (20:09)
[2022-02-20] MEDS: hyDROXYzine 25 mg Capsule 50 MG PO (20:11)
[2022-02-21 06:00] VITALS: PULSE 69; RESP 18; TEMP 36.9; O2SAT 98
[2022-02-21] MEDS: buPROPion XL (24 HR) 150 mg Tablet 300 MG PO (08:18)
[2022-02-21] MEDS: risperiDONE 1 mg Tablet PO (08:18)
[2022-02-21] MEDS: pantoprazole DR 40 mg Tablet PO (08:18)
[2022-02-21] MEDS: lamoTRIgine 100 mg Tablet 200 MG PO (08:18)
[2022-02-21] MEDS: lisinopril 20 mg Tablet PO (08:18)
[2022-02-21] MEDS: buprenorphine-naloxone 4-1 mg Film 2 EACH SUBLINGUAL (08:19)
[2022-02-21] MEDS: fexofenadine 60 mg Tablet 180 MG PO (08:20)
[2022-02-21] MEDS: nicotine 2 mg Gum BUCCAL (08:21)
[2022-02-21 11:09] VITALS: PULSE 120; RESP 18
[2022-02-21] MEDS: duloxetine 60 mg Capsule PO (11:37)
[2022-02-21] MEDS: nicotine 4 mg lozenge MUCOUS MEM ×2 (12:46→15:03)
[2022-02-21 14:00] VITALS: BP 96/64; PULSE 75; RESP 20; TEMP 36.8; O2SAT 94
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
[2022-02-21 16:05] VITALS: BP 96/64; PULSE 75; RESP 20; TEMP 36.8; O2SAT 94
[2022-02-21] MEDS: rivaroxaban 10 mg Tablet 20 MG PO (16:16)
== END 2022-02-21 16:19 | disposition home or self-care (01) | DRG 885 ==
LOC: ER 14:35 → NP 14:45
PROVIDERS: Admitting Provider Psychiatry & Neurology Psychiatry; Emergency Provider Emergency Medicine; PCP Nurse Practitioner Family; Visit Provider Psychiatry & Neurology Psychiatry
DX: F33.2 Major depressive disorder, recurrent severe without psychotic features (principal); R45.851 Suicidal ideations; F10.10 Alcohol abuse, uncomplicated; Z91.51 Personal history of suicidal behavior; F43.12 Post-traumatic stress disorder, chronic; F17.210 Nicotine dependence, cigarettes, uncomplicated; J44.9 Chronic obstructive pulmonary disease, unspecified; E66.9 Obesity, unspecified; Z68.37 Body mass index [BMI] 37.0-37.9, adult; F15.21 Other stimulant dependence, in remission; F11.21 Opioid dependence, in remission; F12.90 Cannabis use, unspecified, uncomplicated; Z79.51 Long term (current) use of inhaled steroids
CPT/HCPCS: 80053; 80306; 80307; 81025; 85025; 94640; 97150; 97165; 99285; J0573; J3535

== ENCOUNTER → 2022-04-20 14:47 | Outpatient (BNVA) | payer MEDICAID, SELFPAY ==
[2022-03-28 14:37] VITALS: BP 144/86; BMI 40.2
== END ==
PROVIDERS: PCP Nurse Practitioner Family; Visit Provider Nurse Practitioner
DX: M25.561 Pain in right knee (principal); W19.XXXA Unspecified fall, initial encounter
CPT/HCPCS: 73562

== ENCOUNTER → 2022-09-01 10:02 | Outpatient (BNVA) | payer MEDICAID, SELFPAY ==
[2022-03-28 14:37] VITALS: BP 144/86; BMI 40.2
== END ==
PROVIDERS: PCP Nurse Practitioner Family; Visit Provider Nurse Practitioner
DX: S93.422A Sprain of deltoid ligament of left ankle, initial encounter (principal); X58.XXXA Exposure to other specified factors, initial encounter
CPT/HCPCS: 73610

== ENCOUNTER 2022-09-12 12:27 | Oncology outpatient (recurring) (ONCR) | payer MEDICAID, SELFPAY ==
[2022-03-28 14:37] VITALS: BP 144/86; BMI 40.2
[2022-09-12 14:19] LABS: Basophils # 0.1 10^3/uL (0.0-0.1); Basophils % 1.7 %; Eosinophils # 0.3 10^3/uL (0.0-0.8); Eosinophils % 5.7 %; Hematocrit 36.3 % (37.0-47.0); Hemoglobin 11.3 g/dL (11.5-15.3); Lymphocytes # 2.6 10^3/uL (0.8-4.8); Lymphocytes % 47.3 %; Mean Corpuscular HGB Conc 31.1 g/dL (30.0-36.0); Mean Corpuscular Hemoglobin 27.6 pg (28.0-34.0); Mean Corpuscular Volume 88.5 fl (81-99); Mean Platelet Volume 10.9 fL (7.4-10.4); Monocytes # 0.6 10^3/uL (0.2-0.9); Monocytes % 10.7 %; Neutrophils # 1.84 10^3/uL (1.8-7.7); Nucleated Red Blood Cells % 0 %; Platelet Count 235 10^3/cmm (130-400); White Blood Count 5.4 10^3/uL (4.0-10.0)
[2022-09-12 14:36] LABS: Alanine Aminotransferase 7 U/L (0-33); Albumin Level 3.8 g/dL (3.5-5.2); Alkaline Phosphatase 58 U/L (35-105); Anion Gap 11.3 (5-19); Aspartate Amino Transferase 8 U/L (0-32); Blood Urea Nitrogen 12 mg/dL (6-20); Calcium 8.4 mg/dL (8.5-10.5); Carbon Dioxide 27 mmol/L (22-29); Chloride 101 mmol/L (98-107); Creatinine Clr Calc Pharmacy 149.2738; Ferritin 36 ng/mL (15-150); Globulin 2.5 g/dL (1.3-4.6); Glomerular Filtration Rate 91.3 mL/min (90-130); Glucose 62 mg/dL (65-115); Iron 42 ug/dL (37-145); Osmolality Calculated 278 mOsm/kg (285-295); Percent Saturation 15.3 % (20-50); Potassium 4.3 mmol/L (3.5-5.1); Sodium 135 mmol/L (136-145); Total Bilirubin 0.2 mg/dL (0.15-1.2); Total Iron Binding Capacity 274 mcg/dl; Total Protein 6.3 g/dL (6.6-8.7); Unsaturated Iron Binding 232 ug/dL (112-347)
== END 2022-09-22 23:59 | disposition home or self-care (01) ==
PROVIDERS: PCP Nurse Practitioner Family; Visit Provider Internal Medicine Hematology & Oncology
DX: D68.2 Hereditary deficiency of other clotting factors (principal); D50.9 Iron deficiency anemia, unspecified; D68.8 Other specified coagulation defects; Z79.01 Long term (current) use of anticoagulants; Z79.899 Other long term (current) drug therapy
CPT/HCPCS: 36591; 80053; 82728; 83540; 83550; 85025; 99204

== ENCOUNTER → 2022-09-29 10:44 | Outpatient (BNVA) | payer MEDICAID, SELFPAY ==
[2022-03-28 14:37] VITALS: BP 144/86; BMI 40.2
== END ==
PROVIDERS: PCP Nurse Practitioner Family; Visit Provider Psychiatry & Neurology Psychiatry
DX: Z79.899 Other long term (current) drug therapy (principal); F11.20 Opioid dependence, uncomplicated
CPT/HCPCS: 80307

== ENCOUNTER 2022-12-01 15:50 | Outpatient (CLI) | payer MEDICAID, SELFPAY ==
[2022-03-28 14:37] VITALS: BP 144/86; BMI 40.2
--- NOTE | 2022-12-01 16:20 | MR_ITS ---
WS: [id number] MRI BRAIN WITHOUT CONTRAST HISTORY: MIGRAINE COMPARISON: None available. TECHNIQUE: Diffusion imaging, multiplanar T1, T2 and FLAIR imaging obtained. No evidence for acute infarct or hemorrhage. Landeros-white matter differentiation is normal. No remote or acute infarcts are volume loss. Ventricles and extra-axial spaces are normal. No inferior displacement of cerebellar tonsils. The sella turcica and pituitary gland are unremarkabl e. No signal abnormality within the dural venous sinuses. Small caliber or absent RIGHT vertebral artery . Probably normal variant. No infarct. Otherwise flow voids are normal. Paranasal sinuses: Very small air-fluid level in the RIGHT maxillary sinus. Mild mucoperiosteal thick ening in the ethmoid air cells. Mastoid air cells: Normal. Calvarium and scalp: Intact. MR/MR head wo con* [id number] IMPRESSION: 1. No prior infarct or small vessel ischemic disease. 2. No hemorrhage. No mass effect or hydrocephalus. 3. Air-fluid level RIGHT maxillary sinus.
== END 2022-12-01 15:51 | disposition home or self-care (01) ==
PROVIDERS: PCP Nurse Practitioner; Visit Provider Family Medicine
DX: G43.909 Migraine, unspecified, not intractable, without status migrainosus (principal); E66.09 Other obesity due to excess calories
CPT/HCPCS: 70551

== ENCOUNTER 2022-12-19 10:57 | Oncology outpatient (recurring) (ONCR) | payer MEDICAID, SELFPAY ==
[2022-03-28 14:37] VITALS: BP 144/86; BMI 40.2
[2022-12-19 11:05] VITALS: BP 144/82; PULSE 86; RESP 18; TEMP 36.6; O2SAT 98
[2022-12-19 11:28] LABS: Basophils # 0.1 10^3/uL (0.0-0.1); Eosinophils # 0.3 10^3/uL (0.0-0.8); Eosinophils % 3.9 %; Hematocrit 38.9 % (37.0-47.0); Hemoglobin 12.2 g/dL (11.5-15.3); Lymphocytes % 28.5 %; Mean Corpuscular HGB Conc 31.4 g/dL (30.0-36.0); Mean Corpuscular Hemoglobin 27.2 pg (28.0-34.0); Mean Corpuscular Volume 86.6 fl (81-99); Mean Platelet Volume 11.1 fL (7.4-10.4); Monocytes # 0.5 10^3/uL (0.2-0.9); Neutrophils # 4.25 10^3/uL (1.8-7.7); Neutrophils % 59.3 %; Nucleated Red Blood Cells % 0 %; Platelet Count 212 10^3/cmm (130-400); Red Blood Count 4.49 10^6/uL (4.1-5.3); Red Cell Distribution Width 13.7 % (12.1-15.1); White Blood Count 7.2 10^3/uL (4.0-10.0)
[2022-12-19 11:42] LABS: Alanine Aminotransferase 9 U/L (0-33); Albumin Level 4.2 g/dL (3.5-5.2); Alkaline Phosphatase 70 U/L (35-105); Anion Gap 13.7 (5-19); Aspartate Amino Transferase 10 U/L (0-32); Blood Urea Nitrogen 11 mg/dL (6-20); Calcium 8.6 mg/dL (8.5-10.5); Carbon Dioxide 24 mmol/L (22-29); Chloride 105 mmol/L (98-107); Ferritin 27 ng/mL (15-150); Globulin 2.5 g/dL (1.3-4.6); Glomerular Filtration Rate 77.9 mL/min (90-130); Glucose 102 mg/dL (65-115); Iron 58 ug/dL (37-145); Osmolality Calculated 288 mOsm/kg (285-295); Percent Saturation 19.5 % (20-50); Potassium 3.7 mmol/L (3.5-5.1); Sodium 139 mmol/L (136-145); Total Bilirubin 0.2 mg/dL (0.15-1.2); Total Iron Binding Capacity 296 mcg/dl; Total Protein 6.7 g/dL (6.6-8.7); Unsaturated Iron Binding 238 ug/dL (112-347)
== END 2022-12-22 23:59 | disposition home or self-care (01) ==
PROVIDERS: Nurse Practitioner Family; PCP Nurse Practitioner; Visit Provider Internal Medicine Hematology & Oncology
DX: D50.9 Iron deficiency anemia, unspecified (principal); Z86.2 Personal history of diseases of the blood and blood-forming organs and certain disorders involving the immune mechanism
CPT/HCPCS: 80053; 82728; 83540; 83550; 85025; 99214; J1642

== ENCOUNTER → 2022-12-22 10:01 | Outpatient (BNVA) | payer MEDICAID, SELFPAY ==
[2022-12-21 15:16] VITALS: BP 144/86; BMI 40.2
== END ==
PROVIDERS: PCP Nurse Practitioner; Visit Provider Nurse Practitioner
DX: M79.672 Pain in left foot (principal)
CPT/HCPCS: 73630

== ENCOUNTER 2023-05-23 08:00 | Oncology outpatient (recurring) (ONCR) | payer MEDICAID, SELFPAY ==
[2022-12-21 15:16] VITALS: BP 144/86; BMI 40.2
[2023-05-01 11:49] VITALS: BP 183/99; PULSE 70; RESP 16; TEMP 36.2; O2SAT 97
[2023-05-01 12:08] LABS: Basophils # 0.1 10^3/uL (0.0-0.1); Basophils % 1.4 %; Eosinophils # 0.4 10^3/uL (0.0-0.8); Eosinophils % 4.8 %; Hematocrit 39.6 % (36-47); Lymphocytes # 2.5 10^3/uL (0.8-4.8); Lymphocytes % 28.6 %; Mean Corpuscular HGB Conc 31.6 g/dL (30-55); Mean Corpuscular Hemoglobin 27.2 pg (27-33); Mean Corpuscular Volume 86.1 fl (85-98); Mean Platelet Volume 10.8 fL (7.4-10.4); Monocytes # 0.7 10^3/uL (0.2-0.9); Monocytes % 8.3 %; Neutrophils # 4.96 10^3/uL (1.8-7.7); Neutrophils % 56.7 %; Nucleated Red Blood Cells % 0 %; Platelet Count 220 10^3/cmm (157-399); Red Cell Distribution Width 13.2 % (12.1-15.1); White Blood Count 8.75 10^3/uL (3.29-11.43)
[2023-05-01 12:33] LABS: Alanine Aminotransferase 8 U/L (0-33); Albumin Level 4.1 g/dL (3.5-5.2); Alkaline Phosphatase 58 U/L (35-105); Anion Gap 12.1 (5-19); Aspartate Amino Transferase 11 U/L (0-32); Blood Urea Nitrogen 14 mg/dL (6-20); Carbon Dioxide 28 mmol/L (22-29); Chloride 103 mmol/L (98-107); Globulin 2.4 g/dL (1.3-4.6); Glomerular Filtration Rate 77.9 mL/min (90-130); Glucose 124 mg/dL (65-115); Osmolality Calculated 290 mOsm/kg (285-295); Potassium 4.1 mmol/L (3.5-5.1); Sodium 139 mmol/L (136-145); Total Bilirubin 0.2 mg/dL (0.15-1.2); Total Protein 6.5 g/dL (6.6-8.7)
[2023-05-01 13:23] LABS: Ferritin 38 ng/mL (15-150); Iron 42 ug/dL (37-145); Percent Saturation 12.4 % (20-50); Total Iron Binding Capacity 337 mcg/dl; Unsaturated Iron Binding 295 ug/dL (112-347)
[2023-05-11] MEDS: iron sucrose 200 MG in sodium chloride 0.9% (100 ml) 100 ML 220 MG IV (10:00)
[2023-05-21 14:20] VITALS: BP 138/84; PULSE 98; RESP 16; TEMP 36.2; O2SAT 97
[2023-05-21] MEDS: iron sucrose 200 MG in sodium chloride 0.9% (100 ml) 100 ML 220 MG IV (14:46)
[2023-05-21] MEDS: sodium chloride 0.9% 250 ML 75 ML IV (14:46)
[2023-05-21 15:23] VITALS: BP 115/80; PULSE 74; RESP 18; TEMP 35.9; O2SAT 97
[2023-05-23 08:05] VITALS: BP 141/92; PULSE 91; RESP 16; TEMP 35.9; O2SAT 97
[2023-05-23] MEDS: iron sucrose 200 MG in sodium chloride 0.9% (100 ml) 100 ML 220 MG IV (08:15)
[2023-05-23 08:50] VITALS: BP 119/82; PULSE 69; RESP 16; TEMP 35.8; O2SAT 96
== END 2023-05-24 23:59 | disposition home or self-care (01) ==
PROVIDERS: Internal Medicine Medical Oncology; PCP Nurse Practitioner; Visit Provider Radiology Radiation Oncology
DX: D50.9 Iron deficiency anemia, unspecified (principal)
CPT/HCPCS: 80053; 82728; 83540; 83550; 85025; 96365; 99214; J1642; J1756; J7050

== ENCOUNTER → 2023-07-07 15:27 | Outpatient (BNVA) | payer MEDICAID, SELFPAY ==
[2022-12-21 15:16] VITALS: BP 144/86; BMI 40.2
== END ==
PROVIDERS: PCP Nurse Practitioner; Visit Provider Emergency Medicine
DX: S99.921A Unspecified injury of right foot, initial encounter (principal); X58.XXXA Exposure to other specified factors, initial encounter
CPT/HCPCS: 73630

== ENCOUNTER 2023-07-12 12:54 | Oncology outpatient (recurring) (ONCR) | payer MEDICAID, SELFPAY ==
[2022-12-21 15:16] VITALS: BP 144/86; BMI 40.2
[2023-07-12 13:10] VITALS: BP 166/103; PULSE 96; RESP 16; TEMP 36.4; O2SAT 96
[2023-07-12 13:13] LABS: Basophils # 0.1 10^3/uL (0.0-0.1); Basophils % 0.8 %; Eosinophils # 0.2 10^3/uL (0.0-0.8); Eosinophils % 2.2 %; Hematocrit 38.7 % (36-47); Lymphocytes # 4.7 10^3/uL (0.8-4.8); Lymphocytes % 43.8 %; Mean Corpuscular Hemoglobin 28.2 pg (27-33); Mean Platelet Volume 10.7 fL (7.4-10.4); Monocytes # 0.9 10^3/uL (0.2-0.9); Neutrophils # 4.72 10^3/uL (1.8-7.7); Neutrophils % 44.3 %; Nucleated Red Blood Cells % 0 %; Platelet Count 250 10^3/cmm (157-399); Red Cell Distribution Width 14.6 % (12.1-15.1); White Blood Count 10.65 10^3/uL (3.29-11.43)
[2023-07-12 13:29] LABS: Ferritin 95 ng/mL (15-150); Iron 47 ug/dL (37-145); Percent Saturation 17.6 % (20-50); Total Iron Binding Capacity 266 mcg/dl; Unsaturated Iron Binding 219 ug/dL (112-347)
== END 2023-07-25 23:59 | disposition home or self-care (01) ==
LOC: ONCMED 12:56
PROVIDERS: Nurse Practitioner Family; PCP Nurse Practitioner; Visit Provider Radiology Radiation Oncology
DX: D50.9 Iron deficiency anemia, unspecified (principal); D68.2 Hereditary deficiency of other clotting factors; D68.8 Other specified coagulation defects; Z79.01 Long term (current) use of anticoagulants; Z79.899 Other long term (current) drug therapy
CPT/HCPCS: 36591; 82728; 83540; 83550; 85025; 99213; J1642

== ENCOUNTER → 2023-07-26 07:15 | Outpatient (BNVA) | payer MEDICAID, SELFPAY ==
[2022-12-21 15:16] VITALS: BP 144/86; BMI 40.2
== END ==
PROVIDERS: PCP Internal Medicine; Visit Provider Podiatrist Foot & Ankle Surgery
DX: M79.671 Pain in right foot; M79.672 Pain in left foot; M72.2 Plantar fascial fibromatosis; M76.71 Peroneal tendinitis, right leg
CPT/HCPCS: 73630; 99203

== ENCOUNTER → 2023-08-27 10:02 | Outpatient (BNVA) | payer MEDICAID, SELFPAY ==
[2022-12-21 15:16] VITALS: BP 144/86; BMI 40.2
== END ==
PROVIDERS: PCP Internal Medicine; Visit Provider Podiatrist Foot & Ankle Surgery
DX: M72.2 Plantar fascial fibromatosis (principal); M76.71 Peroneal tendinitis, right leg
CPT/HCPCS: 20550; J1100; J3301; J3490

== ENCOUNTER → 2023-11-20 14:39 | Outpatient (BNVA) | payer MEDICAID, SELFPAY ==
[2022-12-21 15:16] VITALS: BP 144/86; BMI 40.2
== END ==
PROVIDERS: PCP Internal Medicine; Visit Provider Psychiatry & Neurology Psychiatry
DX: F11.20 Opioid dependence, uncomplicated (principal); Z79.899 Other long term (current) drug therapy; F43.12 Post-traumatic stress disorder, chronic; F41.1 Generalized anxiety disorder; F60.3 Borderline personality disorder; F33.2 Major depressive disorder, recurrent severe without psychotic features; Z72.0 Tobacco use; F31.81 Bipolar II disorder; F11.91 Opioid use, unspecified, in remission
CPT/HCPCS: 80307

== ENCOUNTER → 2023-11-21 08:34 | Outpatient (BNVA) | payer MEDICAID, SELFPAY ==
[2022-12-21 15:16] VITALS: BP 144/86; BMI 40.2
== END ==
PROVIDERS: PCP Internal Medicine; Visit Provider Podiatrist Foot & Ankle Surgery
DX: M76.71 Peroneal tendinitis, right leg; S92.325D Nondisplaced fracture of second metatarsal bone, left foot, subsequent encounter for fracture with routine healing; S92.335D Nondisplaced fracture of third metatarsal bone, left foot, subsequent encounter for fracture with routine healing; S92.345D Nondisplaced fracture of fourth metatarsal bone, left foot, subsequent encounter for fracture with routine healing; S92.355G Nondisplaced fracture of fifth metatarsal bone, left foot, subsequent encounter for fracture with delayed healing; M21.171 Varus deformity, not elsewhere classified, right ankle; M21.172 Varus deformity, not elsewhere classified, left ankle; M21.6X1 Other acquired deformities of right foot; M25.371 Other instability, right ankle; M25.372 Other instability, left ankle; V87.8XXD Person injured in other specified noncollision transport accidents involving motor vehicle (traffic), subsequent encounter
CPT/HCPCS: 29405; 73630; 99213

== ENCOUNTER → 2023-12-05 08:31 | Outpatient (BNVA) | payer MEDICAID, SELFPAY ==
[2022-12-21 15:16] VITALS: BP 144/86; BMI 40.2
== END ==
PROVIDERS: PCP Internal Medicine; Visit Provider Podiatrist Foot & Ankle Surgery
DX: S92.355G Nondisplaced fracture of fifth metatarsal bone, left foot, subsequent encounter for fracture with delayed healing (principal); M76.71 Peroneal tendinitis, right leg; S92.325G Nondisplaced fracture of second metatarsal bone, left foot, subsequent encounter for fracture with delayed healing; S92.335G Nondisplaced fracture of third metatarsal bone, left foot, subsequent encounter for fracture with delayed healing; S92.345G Nondisplaced fracture of fourth metatarsal bone, left foot, subsequent encounter for fracture with delayed healing; M21.171 Varus deformity, not elsewhere classified, right ankle; M21.172 Varus deformity, not elsewhere classified, left ankle; M21.6X1 Other acquired deformities of right foot; M25.371 Other instability, right ankle; M25.372 Other instability, left ankle; X58.XXXD Exposure to other specified factors, subsequent encounter
CPT/HCPCS: 73630; 99213

== ENCOUNTER → 2024-01-01 08:07 | Outpatient (BNVA) | payer MEDICAID, SELFPAY ==
[2022-12-21 15:16] VITALS: BP 144/86; BMI 40.2
== END ==
PROVIDERS: PCP Nurse Practitioner; Visit Provider Podiatrist Foot & Ankle Surgery
DX: S92.335G Nondisplaced fracture of third metatarsal bone, left foot, subsequent encounter for fracture with delayed healing (principal); S92.325G Nondisplaced fracture of second metatarsal bone, left foot, subsequent encounter for fracture with delayed healing; S92.345G Nondisplaced fracture of fourth metatarsal bone, left foot, subsequent encounter for fracture with delayed healing; S92.355G Nondisplaced fracture of fifth metatarsal bone, left foot, subsequent encounter for fracture with delayed healing; X58.XXXD Exposure to other specified factors, subsequent encounter; M21.171 Varus deformity, not elsewhere classified, right ankle; M21.172 Varus deformity, not elsewhere classified, left ankle; M21.6X1 Other acquired deformities of right foot; M25.371 Other instability, right ankle; M25.372 Other instability, left ankle; M76.71 Peroneal tendinitis, right leg
CPT/HCPCS: 73630; 99213

== ENCOUNTER → 2024-02-18 09:22 | Outpatient (BNVA) | payer MEDICAID, SELFPAY ==
[2022-12-21 15:16] VITALS: BP 144/86; BMI 40.2
== END ==
PROVIDERS: PCP Nurse Practitioner; Visit Provider Podiatrist Foot & Ankle Surgery
DX: S92.345G Nondisplaced fracture of fourth metatarsal bone, left foot, subsequent encounter for fracture with delayed healing (principal); S92.335G Nondisplaced fracture of third metatarsal bone, left foot, subsequent encounter for fracture with delayed healing; S92.325G Nondisplaced fracture of second metatarsal bone, left foot, subsequent encounter for fracture with delayed healing; S92.355G Nondisplaced fracture of fifth metatarsal bone, left foot, subsequent encounter for fracture with delayed healing; X58.XXXD Exposure to other specified factors, subsequent encounter; M21.171 Varus deformity, not elsewhere classified, right ankle; M21.172 Varus deformity, not elsewhere classified, left ankle; M21.6X1 Other acquired deformities of right foot; M25.371 Other instability, right ankle; M25.372 Other instability, left ankle; M76.71 Peroneal tendinitis, right leg
CPT/HCPCS: 73630; 99213

== ENCOUNTER → 2024-02-21 14:02 | Outpatient (BNVA) | payer OTHER, SELFPAY ==
[2022-12-21 15:16] VITALS: BP 144/86; BMI 40.2
== END ==
PROVIDERS: PCP Nurse Practitioner; Visit Provider Psychiatry & Neurology Psychiatry
DX: Z79.899 Other long term (current) drug therapy (principal); F11.20 Opioid dependence, uncomplicated
CPT/HCPCS: 80307

== ENCOUNTER → 2024-04-10 10:17 | Outpatient (BNVA) | payer MEDICAID, SELFPAY ==
[2022-12-21 15:16] VITALS: BP 144/86; BMI 40.2
== END ==
PROVIDERS: PCP Nurse Practitioner; Visit Provider Podiatrist Foot & Ankle Surgery
DX: S92.325G Nondisplaced fracture of second metatarsal bone, left foot, subsequent encounter for fracture with delayed healing (principal); S92.335G Nondisplaced fracture of third metatarsal bone, left foot, subsequent encounter for fracture with delayed healing; S92.345G Nondisplaced fracture of fourth metatarsal bone, left foot, subsequent encounter for fracture with delayed healing; S92.355G Nondisplaced fracture of fifth metatarsal bone, left foot, subsequent encounter for fracture with delayed healing; M21.171 Varus deformity, not elsewhere classified, right ankle; M21.172 Varus deformity, not elsewhere classified, left ankle; M21.6X1 Other acquired deformities of right foot; M25.371 Other instability, right ankle; M25.372 Other instability, left ankle; M76.71 Peroneal tendinitis, right leg; R03.0 Elevated blood-pressure reading, without diagnosis of hypertension; X58.XXXD Exposure to other specified factors, subsequent encounter
CPT/HCPCS: 73630; 99213

== ENCOUNTER 2024-04-15 09:27 | Oncology outpatient (recurring) (ONCR) | payer MEDICAID, SELFPAY ==
[2022-12-21 15:16] VITALS: BP 144/86; BMI 40.2
[2024-04-15 09:56] LABS: Basophils # 0.2 10^3/uL (0.0-0.1); Basophils % 2.2 %; Eosinophils # 0.5 10^3/uL (0.0-0.8); Eosinophils % 6.2 %; Hematocrit 41.8 % (36-47); Lymphocytes # 2.2 10^3/uL (0.8-4.8); Mean Corpuscular HGB Conc 31.6 g/dL (30-55); Mean Corpuscular Hemoglobin 28.1 pg (27-33); Mean Corpuscular Volume 89.1 fl (85-98); Mean Platelet Volume 10.8 fL (7.4-10.4); Monocytes # 0.6 10^3/uL (0.2-0.9); Monocytes % 8.3 %; Neutrophils # 3.84 10^3/uL (1.8-7.7); Nucleated Red Blood Cells % 0 %; Platelet Count 219 10^3/cmm (157-399); Red Blood Count 4.69 10^6/uL (3.85-5.65); Red Cell Distribution Width 13.9 % (12.1-15.1); White Blood Count 7.24 10^3/uL (3.29-11.43)
[2024-04-15 10:15] LABS: Alanine Aminotransferase 14 U/L (0-33); Albumin Level 3.9 g/dL (3.5-5.2); Alkaline Phosphatase 66 U/L (35-105); Anion Gap 13.1 (5-19); Aspartate Amino Transferase 15 U/L (0-32); Blood Urea Nitrogen 13 mg/dL (6-20); Calcium 8.4 mg/dL (8.5-10.5); Carbon Dioxide 28 mmol/L (22-29); Chloride 101 mmol/L (98-107); Creatinine Clr Calc Pharmacy 125.6324; Ferritin 62 ng/mL (15-150); Globulin 2.5 g/dL (1.3-4.6); Glomerular Filtration Rate 77.6 mL/min (90-130); Glucose 90 mg/dL (65-115); Iron 50 ug/dL (37-145); Osmolality Calculated 286 mOsm/kg (285-295); Percent Saturation 13.4 % (20-50); Potassium 4.1 mmol/L (3.5-5.1); Sodium 138 mmol/L (136-145); Total Bilirubin 0.2 mg/dL (0.15-1.2); Total Iron Binding Capacity 371 mcg/dl; Total Protein 6.4 g/dL (6.6-8.7); Unsaturated Iron Binding 321 ug/dL (112-347)
[2024-04-20 20:19] LABS: Factor VIII Activity Clotting 91 % normal (50-180)
[2024-04-25 15:16] LABS: Factor 5 Leiden Mutation POSITIVE
== END 2024-04-24 23:59 | disposition home or self-care (01) ==
PROVIDERS: Internal Medicine Hematology & Oncology; PCP Nurse Practitioner; Visit Provider Radiology Radiation Oncology
DX: D50.9 Iron deficiency anemia, unspecified (principal); F17.210 Nicotine dependence, cigarettes, uncomplicated; Z86.711 Personal history of pulmonary embolism; Z86.718 Personal history of other venous thrombosis and embolism; Z79.02 Long term (current) use of antithrombotics/antiplatelets; Z79.899 Other long term (current) drug therapy
CPT/HCPCS: 36591; 73630; 80053; 81241; 82728; 83540; 83550; 85025; 85240; 99203; 99214

== ENCOUNTER → 2024-05-01 09:40 | Outpatient (BNVA) | payer MEDICAID, SELFPAY ==
[2022-12-21 15:16] VITALS: BP 144/86; BMI 40.2
== END ==
PROVIDERS: PCP Nurse Practitioner; Referring Provider Nurse Practitioner; Visit Provider Student in an Organized Health Care Education/Training Program
DX: Z12.11 Encounter for screening for malignant neoplasm of colon (principal)
CPT/HCPCS: 99024; 99204

== ENCOUNTER 2024-06-24 08:25 | Day surgery (SDC) | payer MEDICAID, SELFPAY ==
[2022-12-21 15:16] VITALS: BP 144/86; BMI 40.2
--- OUTSIDE RECORDS SUMMARY | 2024-05-02 08:42 | XMS_ITS ---
Author Name Unknown Organization [facility] Address [address] [place] [address] Care Team Providers Care Touch Up Carver Name Role Phone Pat Ambrosio APN Primary Care Provider Unavaila germania JacobtOleg Unavailable [phone] Varun Gomes DO Unavailable Unavailable Allergies Allergen (clinical drug ingredient) Drug/Non Drug Allergy documented on EMR Reaction Allergy Type Onset Date Status meloxicam Mobic vomiting Drug Allergy Active Substance with sulfonamide structure and antibacterial mechanism of action (substance) Sulfa Antibiotics hives Drug Allergy Active REASON FOR VISIT incision check Medications Medication SIG (Take, Route, Frequency, Duration) Notes Start Date End Date Status Suboxone Active Xarelto Active buPROPion HCl ER (XL) 300 MG 1 tablet in the morning Orally Once a day Active Chantix Active Cymbalta 60 MG 1 capsule Orally Onc e a day Active risperiDONE Active hydrOXYzine HCl 50 MG 1 tablet as needed Orally Once a day Active Prazosin HCl 5 MG 1 capsule at bedtime Orally Once a day Active lamoTRIgine 200 MG 1 tablet on the tong ue and allow to dissolve Orally Once a day Active Vital Signs Blood pressure systolic 146 mm Hg 04/29/20 24 Blood pressure diastolic 88 mm Hg 024 Heart Rate 80 /min 04/29/2024 Respiratory Rate 18 /min 04/29/2024 Height 71.5 in 04/29/2024 Weight 272.49 lbs 04/29/2024 BMI 37.47 kg/m2 04/29/2024 Oximetry 97 % 04/29/2024 Height-cm 181.61 cm 04/29/2024 Weight-kg 123.6 kg 04/29/2024 Encounters Encounter Location Date Provider Diagnosis [address] [place] [address] 04/29/2024 Oleg Galindo Herniation through surgical site K43.2 Assessments Encounter Date Diagnosis (ICD Code) Assessment Notes Treatment Notes Treatment Clinical Notes 04/29/2024 Herniation through surgical site (ICD-10 - K43.2) Patient is counseled regarding the significance of findings on exam and potential adverse outcomes if the hernia contains incarcerated bowel. I have encouraged and instructed patient to go straight to the ER at [facility] as we need to obtain CT scan, and General surgery consultation. She additionally is instructed to remain NPO in case she needs to go to surgery tonight. She voices understanding and is in agreement with the plan. Plan Of Treatment Treatment Notes Assessment Notes Herniation through surgical site Patient is counseled regarding the significance of findings on exam and potential adverse outcomes if the hernia contains incarcerated bowel. I have encouraged and instructed patient to go straight to the ER at [facility] as we need to obtain CT scan, and General surgery consultation. She additionally is instructed to remain NPO in case she needs to go to surgery tonight. She voices understanding and is in agreement with the plan. Next Appt Details Provider Name:Toya Brown [facility], 05/14/2024 04:30:00 PM, [address] [place] [address] Dr [address], [place], [address], Progress Notes * CAROLYNE CODY LDOB: [birth year] (43 yo F)Acc No.[id number]:04/29/2024 Patient:?CAROLYNE CODY Provider:?Oleg Galindo D.O. :1980???Age:43 Y???Sex:Female D ate:04/29/2024 Address:[address] [place], [place] [address] Pcp:Pat Ambrosio APN Check In:02:52 PM CSTCheck O ut:04:05 PM MEASUREMENT TECHNICIAN Subjective: * Chief Complaints: * ???1. Incision check. * HPI: ???::? Patient presents with complaint of onset of left lower quadrant swelling and pain after recent surgery.? Patient underwent laparoscopic surgery for right ovarian torsion on 04/16/24.? She indicates that 4 days ago she noticed a small bulge the size of the end of her little finger at the location of the left lower laparoscopic port site.? Then three days ago she developed nausea, vomiting and diarrhea.? The size of the bulging mass has increase daily.? This morning she was seen by her Primary care provider who called to request patient be seen in this office today.? The patient indicates the mass has increased in size since this morning.? She indicates the area is extremely tender to touch.? ?Over the last two days she indicates no more nausea and her bowels and bladder have been working normally.? She has not had any fever or chills.? She denies straining or lifting anything heavy or over exerting herself. * ROS:?General - Multi System:?Constitutional?Denies, fever, chills, weakness, fatigue, poor appetite, unexplained weight loss.?Cardiovascular?Denies any recent chest pain, palpitations or syncope.?Respiratory?Denies any shortness of breath, cough, or hemoptysis.?Gastrointestinal?Denies heartburn, constipation, diarrhea, nausea, blood in stools.?Genitourinary?Denies dysuria, urinary frequency, or hematuria. Neurologic?Denies numbness, tingling, or unilateral weakness.?Psychiatric?Denies depression, anxiety, or suicidal thoughts/actions.? * Medical History:?Hypertensio n, GERD, Factor 5/8 leiden, Asthma, Bipolar, Depression. * OB History:? # 1:?normal spontaneous vaginal delivery () 1999 6 lbs 7.4 oz female.? # 2:?normal spontaneous vaginal delivery () 2002 6lbs 7 oz female.? # 3?normal spontaneous vaginal delivery () 2003 6 lbs 4oz female.? # 4:?normal spontaneous vaginal delivery () 2004 10lbs 14oz male.? * Surgical History:?LO , BTL , [place] , tonsillectomy , cholestectomy , nose surgeryx2 , knee surgery . * Hospitalization/Major Diagno stic Procedure:?total knee replacement , mental issues , childbirth x 4 . * Family History:?Father: jennifer salomon, lung cancer.?Mother: alive.?Siblings: alive.?Maternal Grand Father: .?Maternal Grand Mother: .?Paternal Grand Father: .?Paternal Grand Mother: .? 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 * Medications:?Taking risperiD ONE , Taking Prazosin HCl 5 MG Capsule 1 capsule at bedtime Orally Once a day , Taking lamoTRIgine 200 MG Tablet Disintegrating 1 tablet on the tongue and allow to dissolve Orally Once a day , Taking hydrOXYzine HCl 50 MG Tablet 1 tablet as needed Orally Once a day , Taking Cymbalta 60 MG Capsule Delayed Release Particles 1 capsule Orally Once a day , Taking buPROPion HCl ER (XL) 300 MG Tablet Extended Release 24 Hour 1 tablet in the morning Orally Once a day , Taking Chantix , Taking Suboxone , Taking Xarelto , Medication List reviewed and reconciled with the patient * Allergies:?Sulfa Antibiotics : hives - Allergy, Mobic: vomiting - Allergy. Objective: * Vitals:?Ht: 71.5 in, Wt:272. 49lbs, Wt-k.6 kg, BMI:37.47Index, BP:146/88mm Hg, HR:80/min, RR:18/min, Oxygen sat %:97%, O2 Source: RA, Ht-cm: 181.61 cm. * Examination: ???Examination: ?GENERAL APPEARANCE:?Awake/alert. No apparent distress.?HEAD:?Atraumatic/normocephalic without facial asymmetry or drooping.?EYES:?PERRLA/EOMI with normal accommodation. Sclerae non-injected, non-icteric.?SKIN:?Normal appearance for race without rashes or lesions. Good turgor.?HEART:?Regular rate and rhythm without rubs, murmurs, or gallops. PMI nondisplaced.?LUNGS:?Clear to auscultation without rales, rhonchi, wheezing, tachypnea or air hunger.?ABDOMEN:?soft, round, obese, non distended.? There is no guarding or rebound tenderness.? Laparoscopic incision sites at the umbilicus and right lower quadrant are intact and with minimal tenderness.? The port site in the left lower quadrant is intact without erythema, or ecchymosis.? There is a mass effect measuring 9 x 6 cm.? This area is very tender to exam.? With palpation the mass is noted to increase slightly in size when patient in supine position is asked to lift her head off the bed.? The mass is non reducible, moderately firm, non fluctuant..?NEUROLOGIC:?Alert and oriented to person, place, time, and situation. Speech clear. CN II-XII intact. Gross exam non-focal.?PSYCHIATRIC:?Affect bright. Psychomotor status normal. Insight good.? Assessment: * Assessment: 1.?Herniation through surgic al site - K43.2 (Primary)??? Plan: * Treatment: * Procedure Codes:?3079F DIAST BP 80-89 MM HG Forms: * Billing Information: * Visit Code:? 65096 Office Visit, Est Pt., Level 3. * Procedure Codes:? 3079F DIAST BP 80-89 MM HG. * UREMENT TECHNICIAN Sign off status: Completed true * Provider:?Oleg Galindo D.O. Date:? 024 Generated for Printi ng/Faestherg/eTransmitting on:?05/02/2024 08:42 AM MEASUREMENT TECHNICIAN History and Physical Notes * Examination Category Sub-Category Detail Notes Examination GENERAL APPEARANCE: Awake/alert. No apparent distress HEAD: Atraumatic/normoceph alic without facial asymmetry or drooping EYES: PERRLA/EOMI with nor mal accommodation. Sclerae non-injected, non-icteric SKIN: Normal appearance fo r race without rashes or lesions. Good turgor HEART: Regular rate and rhy thm without rubs, murmurs, or gallops. PMI nondisplaced ABDOMEN: soft, round, obese, non distended. There is no guarding or rebound tenderness. Laparoscopic incision sites at the umbilicus and right lower quadrant are intact and with minimal tenderness. The port site in the left lower quadrant is intact without erythema, or ecchymosis. There is a mass effect measuring 9 x 6 cm. This area is very tender to exam. With palpation the mass is noted to increase slightly in size when patient in supine position is asked to lift her head off the bed. The mass is non reducible, moderately firm, non fluctuant. NEUROLOGIC: Alert and oriented t o person, place, time, and situation. Speech clear. CN II-XII intact. Gross exam non-focal PSYCHIATRIC: Affect bright. Psych omotor status normal. Insight good LUNGS: Clear to auscultatio n without rales, rhonchi, wheezing, tachypnea or air hunger
--- OUTSIDE RECORDS SUMMARY | 2024-05-02 08:42 | XMS_ITS ---
Author Name Unknown Organization [facility] Address [address] [facility] [place] [address] Care Team Providers Care Custodial Maintenance Worker Name Role Phone Pat Ambrosio APN Primary Care Provider UnavailOleg Garrett Unavailable [phone] Varun Gomes DO Unavailable Unavailable Toya Scherer Unavailable [phone] REASON FOR VISIT please call Encounters Encounter Location Date Provider Diagnosis [address] [place] [address] 04/30/2024 Toya Scherer Plan Of Treatment Next Appt Details Provider Name:Toya Brown ers, 05/14/2024 04:30:00 PM, [address] [place] [address] [address], [place], [address], Progress Notes * CAROLYNE CODY LDOB: [birth year] (43 yo F)Acc No.[id number]:04/30/2024 Patient:?CAROLYNE CODY :1980???Age:43 Y???Sex:Female Address:[address], [place] [address] * true * Date:? Generated for Printi aisha/Kash/eTransmitting on:?05/02/2024 08:42 AM SAMPLE PULLER
--- OUTSIDE RECORDS SUMMARY | 2024-05-02 08:42 | XMS_ITS ---
Author Name Unknown Organization [facility] Address [address] [facility] [place] [address] Care Team Providers Care Registration Representative Name Role Phone Pat Ambrosio APN Primary Care Provider UnavailOleg Garrett Unavailable [phone] Varun Gomes DO Unavailable Unavailable Toya Scherer Unavailable [phone] Encounters Encounter Location Date Provider Diagnosis [address] [place] [address] 04/30/2024 Toya Scherer Plan Of Treatment Next Appt Details Provider Name:Toya Brown ers, 05/14/2024 04:30:00 PM, [address] [place] [address] [address], [place], [address], Progress Notes * CAROLYNE CODY LDOB: [birth year] (43 yo F)Acc No.[id number]:04/30/2024 Patient:?CODY CAROLYNE Gee :1980???Age:43 Y???Sex:Female Address:[address], [place] [address] * true * Date:? Generated for Printi ng/Faestherg/eTransmitting on:?05/02/2024 08:42 AM SOCIAL WELFARE ADMINISTRATOR
--- OUTSIDE RECORDS SUMMARY | 2024-05-02 08:42 | XMS_ITS | Patient Health Record ---
Author Name Unknown Organization [facility] Address [address] [place] [address] Care Team Providers Care Morning News Anchor Name Role Phone Pat Ambrosio APN Primary Care Provider Unavaila Olge Rodríguez Unavailable [phone] Varun Gomes DO Unavailable Unavailable Toya Scherer Unavailable [phone] Allergies Allergen (clinical drug ingredient) Drug/Non Drug Allergy documented on EMR Reaction Allergy Type Onset Date Status meloxicam Mobic vomiting Drug Allergy Active Substance with sulfonamide structure and antibacterial mechanism of action (substance) Sulfa Antibiotics hives Drug Allergy Active Results Component Value Reference Range Notes CT Abdomen, Pelvis w/ Contra [id number] Reviewed date:04/16/2024 06:21:47 PM Interpretation: Performing Lab: Notes/Report: See Below For Report CT Abdomen, Pelvis w/ Contrast OR Read See Below For Report Reason For Referral No Information Medications Medication SIG (Take, Route, Frequency, Duration) Notes Start Date End Date Status risperiDONE Active Suboxone Active Xarelto Active buPROPion HCl ER (XL) 300 MG 1 tablet in the morning Orally Once a day Active Chantix Active hydrOXYzine HCl 50 MG 1 tablet as needed Orally Once a day Active Cymbalta 60 MG 1 capsule Orally Onc e a day Active Prazosin HCl 5 MG 1 capsule at bedtime Orally Once a day Active lamoTRIgine 200 MG 1 tablet on the tong ue and allow to dissolve Orally Once a day Active Problems Problem Type SNOMED Code ICD Code Onset Dates Problem Status W/U Status Risk Notes Problem Schizophrenia (37039675) Schizophrenia, unspecified (F20.9) Active confirmed Problem Bipolar disorder (78392250) Bipolar disorder, unspecified (F31.9) Active confirmed Problem Adjustment disorder with mixed disturbance of emotions AND conduct (01954622) Adjustment disorder with mixed disturbance of emotions and conduct (F43.25) Active confirmed Problem Nondependent opioid abuse in remission (711343187) Opioid abuse, in remission (F11.11) Active confirmed Problem Pure hypercholesterolemia (428877195) Hypercholesteremia (E78.00) Active confirmed Problem Posttraumatic stress disorder (03706083) Post traumatic stress disorder (PTSD) (F43.10) Active confirmed Problem Insomnia (724973100) Insomnia (G47.00) Active c onfirmed Problem Angina pectoris (058883442) Angina pectoris (I20.9) Active confirmed Problem Methamphetamine abus e (644434063) Methamphetamine abuse (F15.10) Active confirmed Problem Bipolar disorder (61138577) Bipolar disorder (F31.9) Active confirmed Problem Hypertension (57475670) Hypertension (I10) Active confirmed Problem Cannabis abuse (77410117) Cannabis abuse (F12.10) Active confirmed Problem Factor 5 Leiden mutation (745257154) Factor V Leiden (D68.51) Active confirmed Vital Signs Heart Rate 80 /min 04/29/2024 Respiratory Rate 18 /min 04/29/2024 Height-cm 181.61 cm 04/29/2024 Oximetry 97 % 04/29/2024 Blood pressure diastolic 88 mm Hg 04/29/2024 Weight-kg 123.6 kg 04/29/2024 Height 71.5 in 04/29/2024 Blood pressure systolic 146 mm Hg 04/29/2024 Weight 272.49 lbs 04/29/2024 BMI 37.47 kg/m2 04/29/2024 Encounters Encounter Location Date Provider Diagnosis [address] [place] [address] 04/29/2024 Oleg Jacobt Herniation through surgical site K43.[address] [place] [address] 04/17/2024 Toya Scherer [address] [place] [address] 04/30/2024 Toya Scherer [address] [place] [address] 04/30/2024 Toya Scherer Assessments Encounter Date Diagnosis (ICD Code) Assessment Notes Treatment Notes Treatment Clinical Notes 04/29/2024 Herniation through surgical site (ICD-10 - K43.2) Patient is counseled regarding the significance of findings on exam and potential adverse outcomes if the hernia contains incarcerated bowel. I have encouraged and instructed patient to go straight to the ER at [facility] as we need to obtain CT scan, and General surgery consultation. She additionally is instructed to remain NPO in case she needs to go to surgery tonight. She voices understanding and is in agreement with the plan. Plan Of Treatment Next Appt Details Provider Name:Toya vick, 05/14/2024 04:30:00 PM, [address] [place] [address] [address], [place], [address], Insurance Providers Payer Name Payer Address Payer Phone Subscriber Number Group Number Insured Name Patient Relationship to Insured Coverage Start Date Coverage End Date [place] Medicaid [address] [place] [address] [id number] CAROLYNE CODY Self - patient is the insured Medical (General) History Medical History History ICD Code hypertension GERD Factor 5/8 leiden asthma bipolar depression Surgical History Surgery Date(Month/Year) LO BTL [place] tonsillectomy cholestectomy nose surgeryx2 knee surgery Hospitalization History Reason Date(Month/Year) childbirth x 4 mental issues total knee replacement
--- OUTSIDE RECORDS SUMMARY | 2024-05-02 08:43 | XMS_ITS ---
Author Name Unknown Organization [facility] Address [address] [address] Care Team Providers Care Department Specialist Name Role Phone Warden Pat Jane [phone] REASON FOR VISIT discuss ortho referral SOCIAL HISTORY Sex Assigned At : Social History Observation Description Sex Assigned At Female Encounters Encounter Location Date [facility] [address] [address] 01/23/2023 Pat Ambrosio PLAN OF TREATMENT No Information Progress Notes * Trung CODY LDOB: [birth year] (43 yo F)Acc No.[id number]:01/23/2023 Patient:??GLO Trung Gee Provider:??Pat Ambrosio :1980?Age:42 Y?Sex:Fe male Date:01/23/2023 Address:[address] [place], [place] [address] Subjective: * Chief Complaints: * ?1. Discuss ortho refer ral. * Medical History:?? Objective: Assessment: Plan: * Treatment: * Billing Information: * Visit Code:?? * Procedure Codes:?? * P STRIPPER HAND Sign off status: Pending * Provider:??Pat Ambrosio Date:??
--- OUTSIDE RECORDS SUMMARY | 2024-05-02 08:43 | XMS_ITS ---
Author Name Unknown Organization [facility] Address [address] [address] Care Team Providers Care Administrative Director Name Role Phone Warden Pat Jane [phone] REASON FOR VISIT discuss ortho referral SOCIAL HISTORY Sex Assigned At : Social History Observation Description Sex Assigned At Female Encounters Encounter Location Date Provider Diagnosis [facility] [address] [address] 01/25/2023 Pat Ambrosio PLAN OF TREATMENT No Information Progress Notes * Trung CODY LDOB: [birth year] (43 yo F)Acc No.[id number]:01/25/2023 Patient:??GLO Trung Gee Provider:??Pat Ambrosio :1980?Age:42 Y?Sex:Fe male Date:01/25/2023 Address:[address] [place], [place] [phone] Subjective: * Chief Complaints: * ?1. Discuss ortho refer ral. * Medical History:?? Objective: Assessment: Plan: * Treatment: * Billing Information: * Visit Code:?? * Procedure Codes:?? * LABORER Sign off status: Pending * Provider:??Pat Ambrosio Date:??
--- OUTSIDE RECORDS SUMMARY | 2024-05-02 08:43 | XMS_ITS ---
Author Name Unknown Organization Located [facility] Address [address] [place] [address] Care Team Providers Care Electrical And Instrumentation Mechanic Name Role Phone [place] [phone] REASON FOR VISIT Message SOCIAL HISTORY Sex Assigned At : Social History Observation Description Sex Assigned At Female Encounters Encounter Location Date Provider Diagnosis [facility] [address] [address] 01/22/2023 Pat Ambrosio PLAN OF TREATMENT No Information Progress Notes * Trung CODY LDOB: [birth year] (42 yo F)Acc No.[id number]:01/22/2023 Patient:??Trung Cody :1980?Age:42 Y?Sex:Fe male Address:[address] [facility] [place] [address] * true * Date:??
--- OUTSIDE RECORDS SUMMARY | 2024-05-02 08:43 | XMS_ITS | Patient Health Record ---
Author Name Unknown Organization [facility] Address [address] [address] Care Team Providers Care Regulatory Affairs Intern Name Role Phone Pat Ambrosio Unavailable [phone] ALLERGIES Allergen (clinical drug ingredient) Drug/Non Drug Allergy documented on EMR Reaction Allergy Type Onset Date Status meloxicam Mobic hives Drug Allergy Active Substance with sulfonamide structure and antibacterial mechanism of action (substance) Sulfa Antibiotics hives Drug Allergy Active REASON FOR REFERRAL No Information MEDICATIONS Medication SIG (Take, Route, Frequency, Duration) Notes Start Date End Date Status Inderal LA for anxiety 03/28/[address] sutherland 03/28/[address] [place] 03/28/2022 Active Anoro Ellipta 62.5-25 MCG/ACT 1 puff Inhalation Once a day for [address] [place]uther[place] Active Suboxone dr suther[place] Active Albuterol Sulfate (2.5 MG/3ML) 0.083% 3 ml as needed for cough/congestion/wheez ing Inhalation every 4 hrs for [address] [place] 03/28/[address] [place] 03/28/2022 Active Omeprazole 20 mg TAKE ONE CAPSULE BY MOUTH BEFORE MORNING MEAL ONCE DAILY FOR 30 DAYS for 30 Active Xarelto 20 mg TAKE ONE TABLET BY MOUTH ONCE DAILY AT 5PM FOR 30 DAYS for 30 Active SOCIAL HISTORY Tobacco Use: Social History Observation Description Date Details (start date - stop date) Current Smoker NA - NA Sex Assigned At : Social History Observation Description Sex Assigned At Female Tobacco Use/Smoking Question Answer Notes Tobacco use: current smoker PROBLEMS Problem Type ICD Code Onset Dates Problem Status W/U Status Risk SNOMED Code Notes Problem Port-A-Cath in place (Z95.828) Active confirmed 723174348 Problem COPD exacerbation (J44.1) Active confirmed 730871281 Problem Anticoagulant long-term use (Z79.01) Active confirmed Long-term current use of anticoagulant (065045686) PLAN OF TREATMENT Pending Test Test Name Order Date Group A Strep Throat Swab 12/21/2022 Insurance Providers Payer Name Payer Address Payer Phone Subscriber Number Group Number Insured Name Patient Relationship to Insured Coverage Start Date Coverage End Date Medicaid [address] [place] [address] [id number] Trung Herring Self - patient is the insured MEDICAL (GENERAL) HISTORY Medical History History ICD Code Factor V and Factor 8 (takes xarelto) bipolar Dr Stone [facility] ptsd schizoaffective d/o depression/anxiety/panic attacks hosp d/t SI 02/2022 hosp C x4days copd history of methamphetamine abuse and opi od abuse angiogram, NORMAL, 03/2021 history of heart murmur DJD lumbar Surgical History Surgery Date(Month/Year) left TKR 2018 Gall bladder surgery tube thoracostomy tonsillectomy Port left upper chest Hospitalization History Reason Date(Month/Year) None in past 30 days
[2024-06-24 09:00] VITALS: BP 177/98; PULSE 105; RESP 17; TEMP 36.1; O2SAT 95
[2024-06-24 09:17] LABS: OR HCG Qualitative Urine Negative (Negative)
[2024-06-24] MEDS: sodium chloride 0.9% 500 ML 15 ML IV (09:24)
--- NOTE | 2024-06-24 09:27 | ANES.PREANE2 ---
Pre-Anesthetic Assessment Height/Weight: Height 1.8 m Weight 118.841 kg Temp Pulse Resp BP Pulse Ox O2 Del Method 97 F L 105 H 17 177/98 95 Room Air 06/24/24 09:00 06/24/24 09:00 06/24/24 09:00 06/24/24 09:00 06/24/24 09:00 06/24/24 09:00 Operation Date: 06/24/24 10:00 Proposed Procedures p Colonoscopy 99362, G0121, Z12.11(Not Applicable) - Nathan Ivey MD Familial anesthetic complications: none Was Beta Chuyita taken within 24 hours: N/A (took yesterday) Was Clonidine taken within 24 hours: N/A Last intake: Intake Last Liquid Date 06/23/24 Last Liquid Time 20:00 Last Solid Date 06/22/24 Last Solid Time 18:30 Social Tobacco (1/2 ppd and MJ ) and No alcohol Exam alert and oriented x 3 Airway Submandibular: within normal limits Cervical ROM: within normal limits Mallampati: Class II Dentition: false Pulmonary Asthma, Chronic Obstructive Pulmonary Disease, Exertional Dyspnea, Sleep Apnea (per chart) and Shortness of Breath CV/HEM Deep Vein Thrombosis and Hypertension chest pain 3 years ago-cleared by cardiology by angiogram per patient. 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 multiple DVTS in past, clot in jugular in past. no clots or bleeding problems in 5 years per patient. gets iron infusions. has port access. hemorrhaged after delivering 3rd baby- no issues with hemorrhage since that time. None reported Hepatic None reported GI Gastroesophageal Reflux Disease Metabolic Hyperlipidemia and Morbid Obesity [facility] [place]/[facility] None reported Neuropsych Anxiety, Bipolar and Depression PTSD, SI, Borderline personality disorder Anesthetic Plan ASA status: 4 Anesthesia: Anesthesia Evaluation and MAC Medications/Allergies Home Medications Medication Instructions Recorded Confirmed Last Taken Type ondansetron 8 mg disintegrating 8 mg PO Q8H PRN nausea and 08/11/21 06/24/24 Unknown Rx tablet vomiting #30 tabs albuterol sulfate 2.5 mg/3 mL 2.5 mg (3 mL) inhalation Q4H PRN 10/20/21 06/24/24 1 Day Ago Rx (0.083 %) solution for nebulization shortness of breath or wheezing ~02/16/22 #180 mL ProAir HFA 90 mcg/actuation See Rx Instructions .Route 05/08/22 06/19/24 06/19/24 Rx aerosol inhaler (albuterol sulfate) .COMPLEX #8.5 grams ibuprofen 600 mg tablet 600 mg PO Q8H PRN pain #30 tabs 07/07/23 06/24/24 06/21/24 Rx CAM walker #1 ea 07/26/23 05/01/24 Unknown Rx Bilateral AFO #1 ea 11/27/23 05/01/24 Unknown Rx nicotine (polacrilex) 4 mg gum 4 mg buccal Q1H #110 ea 01/17/24 06/24/24 Unknown Rx (Nicorette) duloxetine 60 mg capsule,delayed 60 mg PO BID #60 caps 02/21/24 06/24/24 06/23/24 Rx release nicotine (polacrilex) 4 mg buccal 4 mg buccal Q8H PRN nicotine 02/21/24 06/24/24 Unknown Rx lozenge cravings #108 ea propranolol 20 mg tablet 20 mg PO BID PRN anxiety #60 tabs 02/21/24 06/24/24 06/23/24 Rx varenicline 1 mg tablet 1 mg PO BID #56 tabs 02/21/24 06/24/24 06/23/24 Rx omeprazole 40 mg capsule,delayed 40 mg PO DAILY 04/15/24 06/24/24 06/24/24 History release buprenorphine 8 mg-naloxone 2 mg 2 film sublingual DAILY #60 ea 06/06/24 06/24/24 06/23/24 Rx sublingual film fluticasone propionate 50 1 spray intranasal BID 06/19/24 06/24/24 06/23/24 History mcg/actuation nasal spray,suspension mometasone 220 mcg/actuation(60 1 inh inhalation BID 06/19/24 06/24/24 06/20/24 History doses) breath activated powder inhaler (Asmanex Twisthaler) naproxen 500 mg tablet 500 mg PO BID 06/19/24 06/24/24 06/23/24 History rivaroxaban 20 mg tablet (Xarelto) 20 mg PO DAILY 06/19/24 06/24/24 06/20/24 History telmisartan 40 mg tablet 40 mg PO DAILY 06/19/24 06/24/24 06/23/24 History Allergies Allergy/AdvReac Type Severity Reaction Status Date / Time meloxicam [From Mobic] Allergy Severe ALGY-Swell Verified 04/15/24 09:47 Lip/Tongue/Throat Sulfa (Sulfonamide Allergy Severe ALGY-Swell Verified 04/15/24 09:47 Antibiotics) Lip/Tongue/Throat Current Medications Generic Name Dose Route Start Last Admin Trade Name Freq PRN Reason Stop Dose Admin Sodium Chloride 500 mls @ 15 mls/hr 06/24/24 08:49 06/24/24 09:24 Sodium Chloride 0.9% IV 06/25/24 08:48 15 mls/hr .Q24H PRN Administration COLONOSCOPY FLUIDS PFSH Anesthesia Medical History Hx of factor VIII deficiency Iron deficiency anemia Recurrent deep vein thrombosis (DVT) Post-traumatic stress disorder, chronic Psychiatric care History of bipolar disorder Family History Other CAD (coronary artery disease) Cancer Diabetes Hyperlipidemia Hypertension Lung disease Psychiatric illness Social History Smoking and tobacco/nicotine status: current every day tobacco/nicotine user cigarettes Packs smoked per day: 1 Years cigarettes smoked: 21 Quit status (tobacco/nicotine): has tried quititng Number of times tried to quit tobacco: 2 Second hand smoke exposure: No Alcohol intake: current Alcohol intake frequency: holidays/special occasions only Alcohol type: hard liquor Substance/Drug Use: former 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 Household members: children Housing: Manufactured/Mobile home Marital status: Single Number of children: 4 Number of grandchildren: 1 Highest education level completed: Some College, No Degree service: No Current occupational status: disabled Pets and animals: Yes Pets & animals: dog(s) Leisure activites: music, reading and other Leisure activities details: woodburning, blo glass Sexually active: Yes Do you think of yourself as: Straight/Heterosexual Current gender identity: Female Rosemarie/Muslim: Orthodox Special rosemarie needs: No Agree to transfusion: Yes Female Reproductive History Para: 4 Data Anesthesia Cardiac Studies: No Data to Display
--- NOTE | 2024-06-24 09:28 | P.HP_ITS ---
Same Day Surgery H&P Indication for Procedure/HPI DATE OF PROCEDURE: June 24, 2024 CHIEF COMPLAINT/INDICATIONFOR SURGICAL PROCEDURE: diagnostic colonoscopy PREOP DIAGNOSIS: diagnostic colonoscopy PLANNED PROCEDURE: Operation Date: 06/24/24 10:00 Proposed Procedures p Colonoscopy 59410, G0121, Z12.11(Not Applicable) - Nathan Ivey MD Medications/Allergies* Home Medications Medication Instructions Recorded Confirmed Type omeprazole 40 mg capsule,delayed 40 mg PO DAILY 04/15/24 06/24/24 History release fluticasone propionate 50 1 spray intranasal BID 06/19/24 06/24/24 History mcg/actuation nasal spray,suspension mometasone 220 mcg/actuation(60 1 inh inhalation BID 06/19/24 06/24/24 History doses) breath activated powder inhaler (Asmanex Twisthaler) naproxen 500 mg tablet 500 mg PO BID 06/19/24 06/24/24 History rivaroxaban 20 mg tablet (Xarelto) 20 mg PO DAILY 06/19/24 06/24/24 History telmisartan 40 mg tablet 40 mg PO DAILY 06/19/24 06/24/24 History Allergies/Adverse Reactions Allergy/AdvReac Type Severity Reaction Status Date / Time meloxicam [From Mobic] Allergy Severe ALGY-Swell Verified 04/15/24 09:47 Lip/Tongue/Throat Sulfa (Sulfonamide Allergy Severe ALGY-Swell Verified 04/15/24 09:47 Antibiotics) Lip/Tongue/Throat Current Medications: Generic Name Dose Route Start Last Admin Trade Name Freq PRN Reason Stop Dose Admin Sodium Chloride 500 mls @ 15 mls/hr 06/24/24 08:49 06/24/24 09:24 Sodium Chloride 0.9% IV 06/25/24 08:48 15 mls/hr .Q24H PRN Administration COLONOSCOPY FLUIDS Pertinent History/Comorbid Conditions* Medical History (Updated 04/27/24 @ 15:42 by Stan Stark MD) Hx of factor VIII deficiency Iron deficiency anemia Recurrent deep vein thrombosis (DVT) Post-traumatic stress disorder, chronic Psychiatric care History of bipolar disorder Family History (Updated 08/31/21 @ 09:49 by Raina Gregory RN) Diabetes CAD (coronary artery disease) Hyperlipidemia Psychiatric illness Lung disease Cancer Hypertension Social History Smoking and tobacco/nicotine status: current every day tobacco/nicotine user cigarettes Packs smoked per day: 1 Years cigarettes smoked: 21 Quit status (tobacco/nicotine): has tried quititng Number of times tried to quit tobacco: 2 Second hand smoke exposure: No Alcohol intake: current Alcohol intake frequency: holidays/special occasions only Alcohol type: hard liquor Substance/Drug Use: former 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 Household members: children Housing: Manufactured/Mobile home Marital status: Single Number of children: 4 Number of grandchildren: 1 Highest education level completed: Some College, No Degree service: No Current occupational status: disabled Pets and animals: Yes Pets & animals: dog(s) Leisure activites: music, reading and other Leisure activities details: woodburning, blo glass Sexually active: Yes Do you think of yourself as: Straight/Heterosexual Current gender identity: Female Rosemarie/Yarsani: [employer] Special rosemarie needs: No Agree to transfusion: Yes Pertinent Exam Findings alert, oriented x 3, clear to auscultation bilaterally, regular rate & rhythm and procedure specific exam findings abdomen soft, nt, nd Recommendations Surgery/Procedure today Coding Level of Care Code Acute Code for Dominique Blanchard
[2024-06-24 09:43] VITALS: BP 103/66; PULSE 98; RESP 18; TEMP 36.2; O2SAT 91
--- NOTE | 2024-06-24 09:45 | ANE.PACU2 ---
Inpatient post-anesthesia follow up: Airway intact: Yes Vital signs: Temperature 97.2 F Pulse Rate 98 Respiratory Rate 18 Blood Pressure 103/66 Pulse Oximetry 91 Oxygen Delivery Me thod Room Air Oxygen Flow Rate Fraction of Inspir ed Oxygen Hydration adequate: Yes Nausea and vomiting: No Pain level: 1 Mental status: Baseline
[2024-06-24 09:52] VITALS: BP 136/95; PULSE 108; RESP 18; TEMP 36.3; O2SAT 92
== END 2024-06-24 10:11 | disposition home or self-care (01) ==
PROVIDERS: PCP Nurse Practitioner; Visit Provider Student in an Organized Health Care Education/Training Program
PROC: 0DJD8ZZ Inspection of Lower Intestinal Tract, Via Natural or Artificial Opening Endoscopic (ICD-10-PCS; CPT 45330; principal; 2024-06-24 10:00)
DX: Z12.11 Encounter for screening for malignant neoplasm of colon (principal); J44.9 Chronic obstructive pulmonary disease, unspecified; G47.30 Sleep apnea, unspecified; Z86.718 Personal history of other venous thrombosis and embolism; I10 Essential (primary) hypertension; K21.9 Gastro-esophageal reflux disease without esophagitis; E78.5 Hyperlipidemia, unspecified; E66.01 Morbid (severe) obesity due to excess calories; Z68.36 Body mass index [BMI] 36.0-36.9, adult; F17.210 Nicotine dependence, cigarettes, uncomplicated
CPT/HCPCS: 45330; 81025; J1642; J7040

== ENCOUNTER 2024-07-15 11:11 | Oncology outpatient (recurring) (ONCR) | payer MEDICAID, SELFPAY ==
[2022-12-21 15:16] VITALS: BP 144/86; BMI 40.2
[2024-07-15 11:48] LABS: Basophils # 0.1 10^3/uL (0.0-0.1); Basophils % 1.9 %; Eosinophils # 0.5 10^3/uL (0.0-0.8); Eosinophils % 7.9 %; Hematocrit 42.1 % (36-47); Lymphocytes # 2.2 10^3/uL (0.8-4.8); Lymphocytes % 32.7 %; Mean Corpuscular HGB Conc 32.1 g/dL (30-55); Mean Corpuscular Volume 90.3 fl (85-98); Mean Platelet Volume 10.5 fL (7.4-10.4); Monocytes # 0.5 10^3/uL (0.2-0.9); Monocytes % 7.5 %; Neutrophils # 3.31 10^3/uL (1.8-7.7); Neutrophils % 49.7 %; Nucleated Red Blood Cells % 0 %; Platelet Count 271 10^3/cmm (157-399); Red Blood Count 4.66 10^6/uL (3.85-5.65); Red Cell Distribution Width 14.3 % (12.1-15.1); White Blood Count 6.67 10^3/uL (3.29-11.43)
[2024-07-15 12:48] LABS: Alanine Aminotransferase 11 U/L (0-33); Albumin Level 4.1 g/dL (3.5-5.2); Alkaline Phosphatase 75 U/L (35-105); Anion Gap 15.4 (5-19); Aspartate Amino Transferase 12 U/L (0-32); Blood Urea Nitrogen 17 mg/dL (6-20); Calcium 9.5 mg/dL (8.5-10.5); Carbon Dioxide 26 mmol/L (22-29); Chloride 102 mmol/L (98-107); Creatinine Clr Calc Pharmacy 128.4845; Globulin 2.5 g/dL (1.3-4.6); Glomerular Filtration Rate 77.6 mL/min (90-130); Glucose 98 mg/dL (65-115); Lactate Dehydrogenase 132 U/L (135-214); Osmolality Calculated 290 mOsm/kg (285-295); Potassium 4.4 mmol/L (3.5-5.1); Sodium 139 mmol/L (136-145); Total Bilirubin 0.2 mg/dL (0.15-1.2); Total Protein 6.6 g/dL (6.6-8.7)
[2024-07-15 13:39] LABS: Ferritin 71 ng/mL (15-150); Folate Level 4.3 ng/mL (4.8-37.3); Iron 114 ug/dL (37-145); Total Iron Binding Capacity 345 mcg/dl; Unsaturated Iron Binding 231 ug/dL (112-347)
[2024-07-15 13:54] LABS: Vitamin B12 346 pg/mL (232-1245)
[2024-07-18 10:09] LABS: Soluble Transferrin Receptor 1.17 mg/L (0.76-1.76)
== END 2024-07-25 23:59 | disposition home or self-care (01) ==
PROVIDERS: Internal Medicine Hematology & Oncology; PCP Nurse Practitioner; Visit Provider Radiology Radiation Oncology
DX: I82.409 Acute embolism and thrombosis of unspecified deep veins of unspecified lower extremity; D50.9 Iron deficiency anemia, unspecified; D68.59 Other primary thrombophilia; F17.210 Nicotine dependence, cigarettes, uncomplicated; Z95.828 Presence of other vascular implants and grafts; Z79.899 Other long term (current) drug therapy
CPT/HCPCS: 36591; 80053; 82607; 82728; 82746; 83540; 83550; 83615; 84238; 85025; 85045; 99214

== ENCOUNTER 2024-07-21 08:29 | Day surgery (SDC) | payer MEDICAID, SELFPAY ==
[2022-12-21 15:16] VITALS: BP 144/86; BMI 40.2
[2024-07-21 08:52] VITALS: BP 136/108; PULSE 102; RESP 16; TEMP 36.7; O2SAT 99
[2024-07-21 08:57] VITALS: BMI 36.8
[2024-07-21] MEDS: sodium chloride 0.9% 500 ML 15 ML IV (08:59)
--- NOTE | 2024-07-21 09:07 | P.HP_ITS ---
Same Day Surgery H&P Indication for Procedure/HPI DATE OF PROCEDURE: July 21, 2024 CHIEF COMPLAINT/INDICATIONFOR SURGICAL PROCEDURE: rule out mass PREOP DIAGNOSIS: rule out intraabdominal mass PLANNED PROCEDURE: Operation Date: 07/21/24 09:30 Proposed Procedures p Colonoscopy 43983, G0121, Z12.11(Not Applicable) - Nathan Ivey MD Medications/Allergies* Home Medications Medication Instructions Recorded Confirmed Type omeprazole 40 mg capsule,delayed 40 mg PO DAILY 04/15/24 07/21/24 History release fluticasone propionate 50 1 spray intranasal BID 06/19/24 07/21/24 History mcg/actuation nasal spray,suspension mometasone 220 mcg/actuation(60 1 inh inhalation BID 06/19/24 07/21/24 History doses) breath activated powder inhaler (Asmanex Twisthaler) naproxen 500 mg tablet 500 mg PO BID PRN Pain 06/19/24 07/21/24 History telmisartan 40 mg tablet 40 mg PO DAILY 06/19/24 07/21/24 History Menopause Relief 2 tab PO DAILY 07/17/24 07/17/24 History albuterol sulfate 90 mcg/actuation 2 puff inhalation Q4H PRN 07/17/24 07/21/24 History aerosol inhaler Shortness Of Breath buprenorphine 8 mg-naloxone 2 mg 2 film sublingual DAILY 07/17/24 07/21/24 History sublingual film (Suboxone) Allergies/Adverse Reactions Allergy/AdvReac Type Severity Reaction Status Date / Time meloxicam [From Mobic] Allergy Severe ALGY-Swell Verified 07/17/24 10:12 Lip/Tongue/Throat Sulfa (Sulfonamide Allergy Severe ALGY-Swell Verified 07/17/24 10:12 Antibiotics) Lip/Tongue/Throat Current Medications: Generic Name Dose Route Start Last Admin Trade Name Freq PRN Reason Stop Dose Admin Sodium Chloride 500 mls @ 15 mls/hr 07/21/24 08:39 07/21/24 08:59 Sodium Chloride 0.9% IV 07/22/24 08:38 15 mls/hr .Q24H PRN Administration COLONOSCOPY FLUIDS Pertinent History/Comorbid Conditions* Medical History (Updated 04/27/24 @ 15:42 by Stan Stark MD) Hx of factor VIII deficiency Iron deficiency anemia Recurrent deep vein thrombosis (DVT) Post-traumatic stress disorder, chronic Psychiatric care History of bipolar disorder Family History (Updated 08/31/21 @ 09:49 by aRina Gregory RN) Diabetes CAD (coronary artery disease) Hyperlipidemia Psychiatric illness Lung disease Cancer Hypertension Social History Smoking and tobacco/nicotine status: current every day tobacco/nicotine user cigarettes Packs smoked per day: 1 Years cigarettes smoked: 21 Quit status (tobacco/nicotine): has tried quititng Number of times tried to quit tobacco: 2 Second hand smoke exposure: No Alcohol intake: current Alcohol intake frequency: holidays/special occasions only Alcohol type: hard liquor Substance/Drug Use: former 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 Household members: children Housing: Manufactured/Mobile home Marital status: Single Number of children: 4 Number of grandchildren: 1 Highest education level completed: Some College, No Degree service: No Current occupational status: disabled Pets and animals: Yes Pets & animals: dog(s) Leisure activites: music, reading and other Leisure activities details: woodburning, blo glass Sexually active: Yes Do you think of yourself as: Straight/Heterosexual Current gender identity: Female Rosemarie/Synagogue: [employer] Special rosemarie needs: No Agree to transfusion: Yes Pertinent Exam Findings alert, oriented x 3, clear to auscultation bilaterally, regular rate & rhythm and procedure specific exam findings abdomen soft, nt, nd Recommendations Surgery/Procedure today Coding Level of Care Code Acute Code for Obedg Fwanai
[2024-07-21 09:22] VITALS: BP 136/61
--- NOTE | 2024-07-21 09:39 | ANES.PREANE2 ---
Pre-Anesthetic Assessment Height/Weight: Height 1.8 m Weight 119.748 kg Temp Pulse Resp BP Pulse Ox O2 Del Method 98.0 F 102 H 16 136/61 99 Room Air 07/21/24 08:52 07/21/24 08:52 07/21/24 08:52 07/21/24 09:22 07/21/24 08:52 07/21/24 08:52 Preop Diagnosis: rule out intraabdominal mass Operation Date: 07/21/24 09:30 Proposed Procedures p Colonoscopy 18111, G0121, Z12.11(Not Applicable) - Nathan Ivey MD Last intake: Intake Last Liquid Date 07/20/24 Last Liquid Time 20:00 Last Solid Date 07/18/24 Last Solid Time 18:30 Pulmonary Chronic Obstructive Pulmonary Disease CV/HEM Deep Vein Thrombosis and Hypertension chest pain 3 years ago-cleared by cardiology by angiogram per patient. 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 multiple DVTS in past, clot in jugular in past. no clots or bleeding problems in 5 years per patient. gets iron infusions. has port access. hemorrhaged after delivering 3rd baby- no issues with hemorrhage since that time. GI Gastroesophageal Reflux Disease Metabolic Morbid Obesity Anesthetic Plan ASA status: 4 Anesthesia: MAC Risk of > 500 ml blood loss (7ml/kg in children): No Medications/Allergies Home Medications Medication Instructions Recorded Confirmed Last Taken Type ondansetron 8 mg disintegrating 8 mg PO Q8H PRN nausea and 08/11/21 07/21/24 07/20/24 Rx tablet vomiting #30 tabs albuterol sulfate 2.5 mg/3 mL 2.5 mg (3 mL) inhalation Q4H PRN 10/20/21 07/21/24 1 Day Ago Rx (0.083 %) solution for nebulization shortness of breath or wheezing ~02/16/22 #180 mL ibuprofen 600 mg tablet 600 mg PO Q8H PRN pain #30 tabs 07/07/23 07/21/24 07/17/24 Rx CAM walker #1 ea 07/26/23 07/15/24 Unknown Rx Bilateral AFO #1 ea 11/27/23 07/15/24 Unknown Rx varenicline 1 mg tablet 1 mg PO BID #56 tabs 02/21/24 07/21/24 07/20/24 Rx omeprazole 40 mg capsule,delayed 40 mg PO DAILY 04/15/24 07/21/24 07/20/24 History release fluticasone propionate 50 1 spray intranasal BID 06/19/24 07/21/24 07/17/24 History mcg/actuation nasal spray,suspension mometasone 220 mcg/actuation(60 1 inh inhalation BID 06/19/24 07/21/24 07/17/24 History doses) breath activated powder inhaler (Asmanex Twisthaler) naproxen 500 mg tablet 500 mg PO BID PRN Pain 06/19/24 07/21/24 07/16/24 History telmisartan 40 mg tablet 40 mg PO DAILY 06/19/24 07/21/24 07/20/24 History duloxetine 60 mg capsule,delayed 60 mg PO BID #60 caps 06/30/24 07/21/24 07/20/24 Rx release propranolol 20 mg tablet 20 mg PO BID PRN anxiety #60 tabs 06/30/24 07/21/24 07/21/24 Rx rivaroxaban 20 mg tablet (Xarelto) 20 mg PO DAILY #30 tabs 07/15/24 07/17/24 07/17/24 Rx Menopause Relief 2 tab PO DAILY 07/17/24 07/17/24 07/17/24 History albuterol sulfate 90 mcg/actuation 2 puff inhalation Q4H PRN 07/17/24 07/21/24 07/20/24 History aerosol inhaler Shortness Of Breath buprenorphine 8 mg-naloxone 2 mg 2 film sublingual DAILY 07/17/24 07/21/24 07/21/24 History sublingual film (Suboxone) Allergies Allergy/AdvReac Type Severity Reaction Status Date / Time meloxicam [From [facility]] Allergy Severe ALGY-Swell Verified 07/17/24 10:12 Lip/Tongue/Throat Sulfa (Sulfonamide Allergy Severe ALGY-Swell Verified 07/17/24 10:12 Antibiotics) Lip/Tongue/Throat Current Medications Generic Name Dose Route Start Last Admin Trade Name Freq PRN Reason Stop Dose Admin Sodium Chloride 500 mls @ 15 mls/hr 07/21/24 08:39 07/21/24 08:59 Sodium Chloride 0.9% IV 07/22/24 08:38 15 mls/hr .Q24H PRN Administration COLONOSCOPY FLUIDS PFSH Anesthesia Medical History Hx of factor VIII deficiency Iron deficiency anemia Recurrent deep vein thrombosis (DVT) Post-traumatic stress disorder, chronic Psychiatric care History of bipolar disorder Family History Other CAD (coronary artery disease) Cancer Diabetes Hyperlipidemia Hypertension Lung disease Psychiatric illness Social History Smoking and tobacco/nicotine status: current every day tobacco/nicotine user cigarettes Packs smoked per day: 1 Years cigarettes smoked: 21 Quit status (tobacco/nicotine): has tried quititng Number of times tried to quit tobacco: 2 Second hand smoke exposure: No Alcohol intake: current Alcohol intake frequency: holidays/special occasions only Alcohol type: hard liquor Substance/Drug Use: former 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 Household members: children Housing: Manufactured/Mobile home Marital status: Single Number of children: 4 Number of grandchildren: 1 Highest education level completed: Some College, No Degree service: No Current occupational status: disabled Pets and animals: Yes Pets & animals: dog(s) Leisure activites: music, reading and other Leisure activities details: woodburning, blo glass Sexually active: Yes Do you think of yourself as: Straight/Heterosexual Current gender identity: Female Rosemarie/Oriental Orthodox: Lutheran Special rosemarie needs: No Agree to transfusion: Yes Female Reproductive History Para: 4 Data Anesthesia Cardiac Studies: No Data to Display
[2024-07-21 10:07] VITALS: BP 115/80; PULSE 70; RESP 18; TEMP 36.3; O2SAT 100
[2024-07-21 10:17] VITALS: BP 154/105; PULSE 90; RESP 18; O2SAT 99
--- NOTE | 2024-07-21 15:36 | ANE.PACU2 ---
Inpatient post-anesthesia follow up: Airway intact: Yes Vital signs: Temperature 97.3 F Pulse Rate 90 Respiratory Rate 18 Blood Pressure 154/105 Pulse Oximetry 99 Oxygen Delivery Me thod Room Air Oxygen Flow Rate Fraction of Inspir ed Oxygen Hydration adequate: Yes Nausea and vomiting: No Pain level: 1 Mental status: Baseline
== END 2024-07-21 10:40 | disposition home or self-care (01) ==
PROVIDERS: PCP Nurse Practitioner; Visit Provider Student in an Organized Health Care Education/Training Program
PROC: 0DJD8ZZ Inspection of Lower Intestinal Tract, Via Natural or Artificial Opening Endoscopic (ICD-10-PCS; CPT 45378; principal; 2024-07-21 09:30)
DX: Z12.11 Encounter for screening for malignant neoplasm of colon (principal); Z86.718 Personal history of other venous thrombosis and embolism; D68.51 Activated protein C resistance; F17.210 Nicotine dependence, cigarettes, uncomplicated; Z79.899 Other long term (current) drug therapy
CPT/HCPCS: 45378; J1642; J2704; J7040

== ENCOUNTER → 2024-07-22 11:12 | Outpatient (BNVA) | payer OTHER, SELFPAY ==
[2022-12-21 15:16] VITALS: BP 144/86; BMI 40.2
== END ==
PROVIDERS: PCP Nurse Practitioner; Visit Provider Psychiatry & Neurology Psychiatry
DX: F11.20 Opioid dependence, uncomplicated (principal); Z79.899 Other long term (current) drug therapy
CPT/HCPCS: 80307

== ENCOUNTER 2024-10-17 08:08 | Oncology outpatient (recurring) (ONCR) | payer MEDICAID, SELFPAY ==
[2022-12-21 15:16] VITALS: BP 144/86; BMI 40.2
[2024-10-17 08:48] LABS: Basophils # 0.1 10^3/uL (0.0-0.1); Basophils % 2.3 %; Eosinophils # 0.5 10^3/uL (0.0-0.8); Eosinophils % 8.1 %; Lymphocytes # 2.3 10^3/uL (0.8-4.8); Lymphocytes % 36.6 %; Mean Corpuscular HGB Conc 31.1 g/dL (30-55); Mean Corpuscular Hemoglobin 28.4 pg (27-33); Mean Corpuscular Volume 91.3 fl (85-98); Mean Platelet Volume 10.9 fL (7.4-10.4); Monocytes # 0.6 10^3/uL (0.2-0.9); Neutrophils # 2.71 10^3/uL (1.8-7.7); Neutrophils % 43.7 %; Nucleated Red Blood Cells % 0 %; Platelet Count 223 10^3/cmm (157-399); Red Blood Count 4.16 10^6/uL (3.85-5.65); Red Cell Distribution Width 12.3 % (12.1-15.1)
[2024-10-17 09:11] LABS: Alanine Aminotransferase 9 U/L (0-33); Albumin Level 3.9 g/dL (3.5-5.2); Alkaline Phosphatase 73 U/L (35-105); Anion Gap 17.1 (5-19); Aspartate Amino Transferase 11 U/L (0-32); Blood Urea Nitrogen 16 mg/dL (6-20); Calcium 8.8 mg/dL (8.5-10.5); Carbon Dioxide 24 mmol/L (22-29); Chloride 104 mmol/L (98-107); Ferritin 40 ng/mL (15-150); Globulin 2.5 g/dL (1.3-4.6); Glucose 130 mg/dL (65-115); Iron 54 ug/dL (37-145); Osmolality Calculated 295 mOsm/kg (285-295); Percent Saturation 15.7 % (20-50); Potassium 4.1 mmol/L (3.5-5.1); Sodium 141 mmol/L (136-145); Total Bilirubin 0.2 mg/dL (0.15-1.2); Total Iron Binding Capacity 343 mcg/dl; Total Protein 6.4 g/dL (6.6-8.7); Unsaturated Iron Binding 289 ug/dL (112-347)
[2024-10-17 09:27] LABS: Vitamin B12 300 pg/mL (232-1245)
[2024-10-17 09:48] LABS: Folate Level 12.4 ng/mL (4.8-37.3)
== END 2024-10-22 23:59 | disposition home or self-care (01) ==
PROVIDERS: Internal Medicine Medical Oncology; PCP Nurse Practitioner; Visit Provider Radiology Radiation Oncology
DX: I82.409 Acute embolism and thrombosis of unspecified deep veins of unspecified lower extremity (principal); E61.1 Iron deficiency; R03.0 Elevated blood-pressure reading, without diagnosis of hypertension; Z95.828 Presence of other vascular implants and grafts; F17.210 Nicotine dependence, cigarettes, uncomplicated; Z79.899 Other long term (current) drug therapy
CPT/HCPCS: 80053; 82607; 82728; 82746; 83540; 83550; 85025; 99214

== ENCOUNTER → 2024-10-22 10:59 | Outpatient (BNVA) | payer SELFPAY ==
[2022-12-21 15:16] VITALS: BP 144/86; BMI 40.2
== END ==
PROVIDERS: PCP Nurse Practitioner; Visit Provider Psychiatry & Neurology Psychiatry
DX: F11.20 Opioid dependence, uncomplicated (principal); Z79.899 Other long term (current) drug therapy; F43.12 Post-traumatic stress disorder, chronic; F41.1 Generalized anxiety disorder; F60.3 Borderline personality disorder; F33.2 Major depressive disorder, recurrent severe without psychotic features; F43.10 Post-traumatic stress disorder, unspecified; Z72.0 Tobacco use
CPT/HCPCS: 80307

== ENCOUNTER 2024-10-28 08:30 | Oncology outpatient (recurring) (ONCR) | payer MEDICAID, SELFPAY ==
[2022-12-21 15:16] VITALS: BP 144/86; BMI 40.2
[2024-10-28 08:57] VITALS: BP 160/87; PULSE 66; RESP 18; TEMP 36.4; O2SAT 97
[2024-10-28] MEDS: acetaminophen 325 mg Tablet 650 MG PO (09:24)
[2024-10-28] MEDS: diphenhydrAMINE 50 mg/mL SDV 1mL 25 MG IVP (09:25)
[2024-10-28] MEDS: sodium chloride 0.9% 500 ML 250 ML IV (09:25)
[2024-10-28] MEDS: iron dextran 25 MG in SYRINGE 1 EACH IVP (10:03)
[2024-10-28] MEDS: iron dextran 1,000 MG in sodium chloride 0.9% 1,000 ML 250 MG IV (11:19)
[2024-10-28 16:15] VITALS: BP 124/84; PULSE 74; RESP 18; TEMP 36.4; O2SAT 98
== END 2024-11-22 23:59 | disposition home or self-care (01) ==
PROVIDERS: PCP Nurse Practitioner; Visit Provider Radiology Radiation Oncology
DX: E61.1 Iron deficiency (principal); Z79.899 Other long term (current) drug therapy
CPT/HCPCS: 96365; 96375; J1200; J1750; J7030; J7040; J9999

== ENCOUNTER → 2024-11-21 11:47 | Outpatient (BNVA) | payer OTHER, SELFPAY ==
[2022-12-21 15:16] VITALS: BP 144/86; BMI 40.2
== END ==
PROVIDERS: PCP Nurse Practitioner; Visit Provider Psychiatry & Neurology Psychiatry
DX: F43.12 Post-traumatic stress disorder, chronic (principal); F41.1 Generalized anxiety disorder; F60.3 Borderline personality disorder; F11.20 Opioid dependence, uncomplicated; F33.2 Major depressive disorder, recurrent severe without psychotic features; F43.10 Post-traumatic stress disorder, unspecified
CPT/HCPCS: 80307

== ENCOUNTER 2024-12-16 07:59 | Oncology outpatient (recurring) (ONCR) | payer MEDICAID, SELFPAY ==
[2022-12-21 15:16] VITALS: BP 144/86; BMI 40.2
[2024-12-16 08:43] LABS: Basophils # 0.1 10^3/uL (0.0-0.1); Basophils % 0.6 %; Eosinophils # 0.2 10^3/uL (0.0-0.8); Eosinophils % 1.8 %; Hematocrit 36.4 % (36-47); Lymphocytes # 1.9 10^3/uL (0.8-4.8); Lymphocytes % 18.1 %; Mean Corpuscular HGB Conc 30.8 g/dL (30-55); Mean Corpuscular Hemoglobin 28.3 pg (27-33); Mean Corpuscular Volume 91.9 fl (85-98); Mean Platelet Volume 10.8 fL (7.4-10.4); Monocytes # 0.6 10^3/uL (0.2-0.9); Monocytes % 6.1 %; Neutrophils # 7.59 10^3/uL (1.8-7.7); Neutrophils % 72.7 %; Nucleated Red Blood Cells % 0 %; Platelet Count 220 10^3/cmm (157-399); Red Blood Count 3.96 10^6/uL (3.85-5.65); Red Cell Distribution Width 14.6 % (12.1-15.1); White Blood Count 10.44 10^3/uL (3.29-11.43)
[2024-12-16 09:05] LABS: Alanine Aminotransferase 11 U/L (0-33); Albumin Level 3.7 g/dL (3.5-5.2); Alkaline Phosphatase 57 U/L (35-105); Anion Gap 14.1 (5-19); Aspartate Amino Transferase 10 U/L (0-32); Blood Urea Nitrogen 22 mg/dL (6-20); Calcium 8.7 mg/dL (8.5-10.5); Carbon Dioxide 28 mmol/L (22-29); Chloride 104 mmol/L (98-107); Ferritin 172 ng/mL (15-150); Globulin 2.3 g/dL (1.3-4.6); Glomerular Filtration Rate 59.7 mL/min (90-130); Glucose 107 mg/dL (65-115); Iron 101 ug/dL (37-145); Osmolality Calculated 298 mOsm/kg (285-295); Percent Saturation 40.7 % (20-50); Potassium 4.1 mmol/L (3.5-5.1); Sodium 142 mmol/L (136-145); Total Bilirubin 0.2 mg/dL (0.15-1.2); Total Iron Binding Capacity 248 mcg/dl; Unsaturated Iron Binding 147 ug/dL (112-347)
== END 2024-12-22 23:59 | disposition home or self-care (01) ==
PROVIDERS: Nurse Practitioner Family; PCP Nurse Practitioner; Visit Provider Internal Medicine
DX: E61.1 Iron deficiency (principal)
CPT/HCPCS: 36591; 80053; 82728; 83540; 83550; 85025; 96523; 99213

== ENCOUNTER 2025-03-17 10:53 | Oncology outpatient (recurring) (ONCR) | payer MEDICAID, SELFPAY ==
[2022-12-21 15:16] VITALS: BP 144/86; BMI 40.2
[2025-03-17 11:45] LABS: Hematocrit 38.6 % (36-47); Hemoglobin 12.20 g/dL (11.27-16.99); Mean Corpuscular HGB Conc 31.6 g/dL (30-55); Mean Corpuscular Hemoglobin 29.0 pg (27-33); Mean Corpuscular Volume 91.9 fl (85-98); Nucleated Red Blood Cells % 0 %; Platelet Count 258 10^3/cmm (157-399); Red Blood Count 4.20 10^6/uL (3.85-5.65); White Blood Count 7.15 10^3/uL (3.29-11.43)
[2025-03-17 12:08] LABS: Alanine Aminotransferase 14 U/L (0-33); Albumin Level 4.1 g/dL (3.5-5.2); Alkaline Phosphatase 65 U/L (35-105); Anion Gap 12.7 (5-19); Aspartate Amino Transferase 12 U/L (0-32); Blood Urea Nitrogen 16 mg/dL (6-20); Calcium 9.1 mg/dL (8.5-10.5); Carbon Dioxide 28 mmol/L (22-29); Chloride 105 mmol/L (98-107); Creatinine Clr Calc Pharmacy 130.9067; Ferritin 86 ng/mL (15-150); Globulin 2.7 g/dL (1.3-4.6); Glucose 83 mg/dL (65-115); Iron 79 ug/dL (37-145); Osmolality Calculated 292 mOsm/kg (285-295); Potassium 4.7 mmol/L (3.5-5.1); Sodium 141 mmol/L (136-145); Total Iron Binding Capacity 323 mcg/dl; Total Protein 6.8 g/dL (6.6-8.7); Unsaturated Iron Binding 244 ug/dL (112-347)
[2025-03-17 12:22] LABS: Vitamin B12 398 pg/mL (232-1245)
== END 2025-03-24 23:59 | disposition home or self-care (01) ==
PROVIDERS: Internal Medicine; PCP Nurse Practitioner; Visit Provider Internal Medicine Medical Oncology
DX: E61.1 Iron deficiency (principal); I82.409 Acute embolism and thrombosis of unspecified deep veins of unspecified lower extremity; F17.210 Nicotine dependence, cigarettes, uncomplicated; Z95.828 Presence of other vascular implants and grafts; Z79.899 Other long term (current) drug therapy; Z71.6 Tobacco abuse counseling
CPT/HCPCS: 36591; 80053; 82607; 82728; 82746; 83010; 83540; 83550; 83615; 85025; 85045; 99214

== ENCOUNTER 2025-05-12 08:11 | Oncology outpatient (recurring) (ONCR) | payer MEDICAID, SELFPAY ==
[2022-12-21 15:16] VITALS: BP 144/86; BMI 40.2
== END 2025-05-24 23:59 | disposition home or self-care (01) ==
PROVIDERS: PCP Nurse Practitioner; Visit Provider Internal Medicine Medical Oncology
DX: E61.1 Iron deficiency (principal); I82.409 Acute embolism and thrombosis of unspecified deep veins of unspecified lower extremity; F17.210 Nicotine dependence, cigarettes, uncomplicated; Z95.828 Presence of other vascular implants and grafts; Z79.899 Other long term (current) drug therapy; Z71.6 Tobacco abuse counseling
CPT/HCPCS: 99214

== ENCOUNTER → 2025-05-19 09:43 | Outpatient (BNVA) | payer MEDICAID, SELFPAY ==
[2022-12-21 15:16] VITALS: BP 144/86; BMI 40.2
== END ==
PROVIDERS: PCP Nurse Practitioner; Visit Provider Psychiatry & Neurology Psychiatry
DX: F11.20 Opioid dependence, uncomplicated (principal); Z79.899 Other long term (current) drug therapy
CPT/HCPCS: 80307

== ENCOUNTER 2025-06-09 13:07 | Oncology outpatient (recurring) (ONCR) | payer MEDICAID, SELFPAY ==
[2022-12-21 15:16] VITALS: BP 144/86; BMI 40.2
--- NOTE | 2025-06-09 10:00 | MM_ITS ---
WS: [id number] DIAGNOSTIC BILATERAL DIGITAL BREAST TOMOSYNTHESIS MAMMOGRAPHY WITH CAD Bilateral breast ultrasound, limited HISTORY: Bilateral breast palpable masses. COMPARISON: None available. TECHNIQUE: Bilateral craniocaudad, mediolateral oblique, and mediolateral views are submitted with tomosynthesis and SM. Spot compression bilateral CC and MLO. Computer aided detection utilized. Breast composition: The breasts are heterogeneously dense, which may obscure small masses. No suspicious masses are identified. Markers are placed along the lateral aspect of each breast at a middle depth. There is no underlying mass or distortion. No suspicious grouping of calcifications. Bilateral breast ultrasound, limited. RIGHT: Ultrasound at 3:00 and 7:00 as directed by the patient. No underlying mass is identified. LEFT breast: Ultrasound at 5:00, 4 cm the nipple. No mass. MM/MM diag BI tomosynthesis [id number] IMPRESSION: BI-RADS: 2 - Benign FOLLOW UP: 1 Year Follow-up No mammographic or ultrasound abnormality noted in the areas of concern.
--- NOTE | 2025-06-09 10:21 | US_ITS ---
WS: [id number] DIAGNOSTIC BILATERAL DIGITAL BREAST TOMOSYNTHESIS MAMMOGRAPHY WITH CAD Bilateral breast ultrasound, limited HISTORY: Bilateral breast palpable masses. COMPARISON: None available. TECHNIQUE: Bilateral craniocaudad, mediolateral oblique, and mediolateral views are submitted with tomosynthesis and SM. Spot compression bilateral CC and MLO. Computer aided detection utilized. Breast composition: The breasts are heterogeneously dense, which may obscure small masses. No suspicious masses are identified. Markers are placed along the lateral aspect of each breast at a middle depth. There is no underlying mass or distortion. No suspicious grouping of calcifications. Bilateral breast ultrasound, limited. RIGHT: Ultrasound at 3:00 and 7:00 as directed by the patient. No underlying mass is identified. LEFT breast: Ultrasound at 5:00, 4 cm the nipple. No mass. US/US breast BI limited* [id number] IMPRESSION: BI-RADS: 2 - Benign FOLLOW UP: 1 Year Follow-up No mammographic or ultrasound abnormality noted in the areas of concern.
== END 2025-06-24 23:59 | disposition home or self-care (01) ==
PROVIDERS: PCP Nurse Practitioner; Visit Provider Internal Medicine Medical Oncology
DX: I82.409 Acute embolism and thrombosis of unspecified deep veins of unspecified lower extremity; E61.1 Iron deficiency; R92.333 Mammographic heterogeneous density, bilateral breasts; N64.4 Mastodynia; N63.20 Unspecified lump in the left breast, unspecified quadrant; R03.0 Elevated blood-pressure reading, without diagnosis of hypertension; Z95.828 Presence of other vascular implants and grafts; D68.51 Activated protein C resistance; Z79.899 Other long term (current) drug therapy; F17.210 Nicotine dependence, cigarettes, uncomplicated; Z53.9 Procedure and treatment not carried out, unspecified reason
CPT/HCPCS: 76642; 77062; 99213; G0279